=== PATIENT | male | born 1975 | race Caucasian/White ===

== ENCOUNTER 2018-11-20 11:04 | Outpatient (REF) | payer MEDICAID, SELFPAY ==
[2018-11-20 20:57] LABS: HCT 44.1 % (40.0-50.0); HGB 15.3 g/dL (13.5-17.5); Mean Corp. HGB Concentration 34.7 g/dL (32.0-36.0); Mean Corpuscular Hemoglobin 30.2 pg (27.0-33.0); Mean Corpuscular Volume 87.2 fL (80-95); Mean Platelet Volume 12.3 fL (8.0-11.0); Platelet Count 120 x1000/uL (130-400); RBC 5.06 m/cumm (4.50-6.00); RBC Distribution Width 12.8 % (11.8-14.1); White Blood Cell Count 4.45 k/cumm (4.4-10.8)
[2018-11-20 21:14] LABS: TSH 2.16 uIU/mL (0.36-3.74)
== END 2018-11-20 11:24 ==
LOC: NCHCN 11:04
PROVIDERS: PCP Internal Medicine; Visit Provider Internal Medicine
DX: R19.4 Change in bowel habit (principal)
CPT/HCPCS: 85027; 84443

== ENCOUNTER 2021-10-30 16:09 | Outpatient (REF) | payer MEDICAID, SELFPAY ==
[2021-10-30 20:36] LABS: HCT 42.5 % (40.0-50.0); HGB 14.5 g/dL (13.5-17.5); MCH 30.5 pg (27.0-33.0); MCHC 34.1 % (32.0-36.0); MCV 90 fL (80-95); MPV 12.1 fL (8.0-11.0); Platelet Count 107 10^3/uL (130-400); RBC 4.75 10^6/uL (4.36-5.78); RDW 12.2 % (11.8-14.1); RDW-SD 40.4 fL; WBC 4.42 10^3/uL (4.4-10.8)
[2021-10-30 20:49] LABS: Anion Gap 8.4 mmol/L (3-11); BUN 20 mg/dL (7-18); CO2 24.6 mmol/L (21.0-32.0); CREATININE 0.9 mg/dL (0.70-1.30); Calcium 8.6 mg/dL (8.5-10.1); Calculated LDL 92 mg/dL (<100); Chloride 106 mmol/L (98-107); Cholesterol 169 mg/dL (<200); Ferritin 58 ng/mL (26-388); Glucose 92 mg/dL (74-106); HDL Cholesterol 56 mg/dL (40-60); Potassium 4.1 mmol/L (3.5-5.1); Sodium 139 mmol/L (136-145); TSH (W/Ref FT4) 1.06 uIU/mL (0.36-3.74); Triglyceride 108 mg/dL (<150)
== END 2021-10-30 16:10 | disposition home or self-care (01) ==
LOC: NCHCN 16:09
PROVIDERS: PCP Internal Medicine; Visit Provider Nurse Practitioner Family
DX: R53.83 Other fatigue (principal); Z13.220 Encounter for screening for lipoid disorders; Z13.0 Encounter for screening for diseases of the blood and blood-forming organs and certain disorders involving the immune mechanism; D69.6 Thrombocytopenia, unspecified
CPT/HCPCS: 80048; 80061; 85027; 82728; 84443

== ENCOUNTER 2022-01-01 18:16 | Outpatient (REF) | payer MEDICAID, SELFPAY ==
[2022-01-01 21:33] LABS: Abs Immature Grans 0.01 10^3/uL (0.0-0.06); Absolute Eosinophil Count 0.15 10^3/uL (0.0-0.7); Absolute Lymphocyte Count 1.61 10^3/uL (1.2-3.4); Absolute Monocyte Count 0.33 10^3/uL (0.1-0.8); Absolute Neutrophil Count 2.14 10^3/uL (1.2-6.7); Eosinophils % 3.5; HCT 43.4 % (40.0-50.0); HGB 14.5 g/dL (13.5-17.5); Immature Grans % 0.2; MCHC 33.4 % (32.0-36.0); MCV 90 fL (80-95); MPV 12.5 fL (8.0-11.0); Monocytes % 7.8; Neutrophils % 50.5; Platelet Count 100 10^3/uL (130-400); RBC 4.83 10^6/uL (4.36-5.78); RDW 12.2 % (11.8-14.1); RDW-SD 40.5 fL; WBC 4.24 10^3/uL (4.4-10.8)
[2022-01-03 08:28] LABS: Hepatitis B Surface Ag Negative (Negative)
[2022-01-03 08:52] LABS: HBs Antibody, Quant 216.7 mIU/mL (See Note); Hepatitis B Surface Ab Positive (See Note)
[2022-01-03 08:57] LABS: Hepatitis C Ab w Rflx HCV PCR Negative (Negative)
[2022-01-03 09:16] LABS: HIV-1/2 Ag & Ab Screen Negative (Negative)
[2022-01-03 09:45] LABS: Hep B Core Antibody Negative (Negative)
[2022-01-03 09:49] LABS: Hep A Total Ab w Rflx IgM Negative (Negative)
== END 2022-01-01 18:17 | disposition home or self-care (01) ==
LOC: NCHCN 18:16
PROVIDERS: PCP Internal Medicine; Visit Provider Nurse Practitioner Family
DX: D69.6 Thrombocytopenia, unspecified (principal); Z11.59 Encounter for screening for other viral diseases; Z11.4 Encounter for screening for human immunodeficiency virus [HIV]; R53.83 Other fatigue; Z01.84 Encounter for antibody response examination
CPT/HCPCS: 86704; 86706; 86709; 86803; 87340; 87389; 85025

== ENCOUNTER 2022-05-14 02:30 | Outpatient (CLI) | payer MEDICAID, SELFPAY ==
--- NOTE | 2022-05-14 | DI.CT_ITS ---
Exam(s) CT CHEST/ABD/PEL W EXAM: CT CHEST/ABD/PEL W CLINICAL HISTORY: THROMBOCYTOPENIA,D69.6,? SPLEEN SIZE,ADENOPATHY,NEED MEASUREMENTS. TECHNIQUE: Imaging Protocol: Axial computed tomography images with coronal and sagittal reformatted images were created and reviewed CONTRAST MATERIAL: Intravenous: Omnipaque 350 Contrast volume:100 ml Oral: None COMPARISON: No exams were available for comparison FINDINGS: CHEST: LUNGS: There are no pulmonary infiltrates, ominous pulmonary nodules, nor pleural effusions. There a re no significant focal findings in the trachea and mainstem bronchi. There is no bronchiectasis.. MEDIASTINUM: There is no hilar nor mediastinal adenopathy. Visualized thyroid unremarkable.No subcari nal adenopathy. No axillary adenopathy. No supraclavicular adenopathy. There is symmetrical mild-m oderate gynecomastia noted. CARDIAC: Heart size is normal. There is no pericardial effusion.Caliber of the thoracic aorta is wit hin normal limits. OSSEOUS: No significant osseous lesions.. ABDOMEN: There is no ascites. LIVER: There are no focal hepatic lesions nor dilatation of intrahepatic ducts. Mild Paddock steatos is. GALLBLADDER/BILIARY: Multiple calcified gallstones are noted. The gallbladder is not edematous and t here is no pericholecystic fluid. Cystic duct and CBD are not dilated. PANCREAS: No evidence of pancreatic mass nor dilatation of the pancreatic duct. SPLEEN: Spleen measurements are as follows: Craniocaudal 11.4 cm. Maximum width 9.8 cm. Maximum AP 16.2 cm. There are no splenic lesions. The splenic and portal veins are patent. ADRENALS: There are no significant adrenal masses. KIDNEYS: Right kidney unremarkable. There is a benign cyst in the posterior cortex of the left kidne y which measures 1.5 x 1.0 cm.. No cysts evident. ABDOMINAL AORTA: Abdominal aorta is not enlarged. LYMPH NODES: There is no retroperitoneal nor paraaortic adenopathy. ABDOMINAL WALL: No evidence of significant anterior abdominal wall nor inguinal hernia. GI: There is no evidence of bowel obstruction. PELVIS: LYMPH NODES: There is no intrapelvic nor inguinal adenopathy. GI: No evidence of appendicitis.No evidence of sigmoid diverticulitis. URINARY BLADDER: No calculi nor masses evident REPRODUCTIVE: Prostate size normal. Seminal vesicles unremarkable. OSSEOUS: No significant osseous lesions. Bailey node invagination noted in the superior endplate of L5. Other more shallow Schmorl's node invagination is are noted at multiple levels. There are no co mpression fractures. No lytic nor blastic osseous lesions evident. IMPRESSION: 1. No significant intrathoracic findings. No pulmonary findings, lymphadenopathy, nor pleural effusi ons. No paraspinal masses. 2. Cholelithiasis. Multiple calcified gallstones are noted. There is no evidence of acute cholecyst itis nor dilatation of the biliary tree. 3. Splenomegaly. Maximum measurement of the spleen is 16.2 cm (AP sprain. Other measurements are as above. RADIATION DOSE DELIVERED: 1,711mGy.cm Total DLP DATA REPOSITORY: All CT scans at this facility are submitted to the National Radiology Data Registry (NRDR) Dose Index Registry (DIR) with the [employer] (ACR). RADIATION OPTIMIZATION: All CT scans at this facility use at least one of these dose optimization te chniques: automated exposure control; mA and/or kV adjustment per patient size (includes targeted exa ms where dose is matched to clinical indication); or iterative reconstruction.
[2022-05-14] MEDS: Normal Saline - Diluent 50 ML VIAL IJ (14:32)
[2022-05-14] MEDS: Omnipaque 350 MG/ML 100 ML BTL IJ (14:32)
== END 2022-05-14 02:50 ==
LOC: DI 02:30
PROVIDERS: PCP Internal Medicine; Visit Provider Internal Medicine Hematology & Oncology
DX: K80.20 Calculus of gallbladder without cholecystitis without obstruction (principal); R16.1 Splenomegaly, not elsewhere classified
CPT/HCPCS: 74177; 71260; J3490

== ENCOUNTER 2023-02-19 03:00 | Outpatient (CLI) | payer MEDICAID, SELFPAY ==
[2023-02-19 14:12] LABS: Abs Immature Grans 0.02 10^3/uL (0.0-0.06); Absolute Basophil Count 0.01 10^3/uL (0.0-0.2); Absolute Lymphocyte Count 1.55 10^3/uL (1.2-3.4); Absolute Monocyte Count 0.41 10^3/uL (0.1-0.8); Basophils % 0.2; Eosinophils % 3.6; HCT 42.4 % (40.0-50.0); HGB 14.8 g/dL (13.5-17.5); Immature Grans % 0.4; Lymphocytes % 27.7; MCHC 34.9 % (32.0-36.0); MCV 86 fL (80-95); MPV 10.9 fL (8.0-11.0); Monocytes % 7.3; Neutrophils % 60.8; Platelet Count 121 10^3/uL (130-400); RBC 4.93 10^6/uL (4.36-5.78); RDW 12.5 % (11.8-14.1); RDW-SD 39.6 fL; WBC 5.59 10^3/uL (4.4-10.8)
[2023-02-19 14:32] LABS: ALT 39 U/L (16-63); AST 22 U/L (15-37); Alkaline Phosphatase 52 U/L (46-116); Anion Gap 8.8 mmol/L (3-11); BUN 13 mg/dL (7-18); Bilirubin, Total 0.5 mg/dL (0.2-1.0); CO2 28.2 mmol/L (21.0-32.0); CREATININE 0.9 mg/dL (0.70-1.30); Calcium 9.1 mg/dL (8.5-10.1); Chloride 107 mmol/L (98-107); Glucose 85 mg/dL (74-106); Potassium 4.1 mmol/L (3.5-5.1); Sodium 144 mmol/L (136-145)
== END 2023-02-19 03:01 | disposition home or self-care (01) ==
PROVIDERS: PCP Internal Medicine; Visit Provider Internal Medicine Hematology & Oncology
DX: D69.6 Thrombocytopenia, unspecified (principal)
CPT/HCPCS: 36415; 80053; 85025

== ENCOUNTER 2023-10-22 11:52 | Outpatient (REF) | payer MEDICAID, SELFPAY ==
--- OUTSIDE RECORDS SUMMARY | 2023-10-22 11:54 | XMS_ITS | Encounter Summary ---
Author Organization [facility] Address [facility] [place] [address] Care Team Providers Care Patent Lawyer Name Role Phone Concetta Gottlieb MD Primary Care Provider [phone] Encounter Details Date Type Department Care Team (Late st Contact Info) Description 07/03/2022 11:00 AM EDT Office Visit Hematology/Oncology at [address] [phone] Rita Leavitt MD [facility] [address] HEMATOLOGY/[place] [address] Thrombocytopenia Social History Tobacco Use Types Packs/Day Years Used Date Smoking Tobacco: Never Smokeless Tobacco: Never Alcohol Use Standard Drinks/Week Comments Yes 0 (1 standard drink = 0.6 oz pur e alcohol) occasional DH IPV Inpatient Questions Answer Date Recorded Does Anyone Try to Keep You From Having Contact with Others or Doing Things Outside Your Home? no 06/25/2022 Feels Threatened by Someone no 06/06 Feels Unsafe at Home or Work/School no 06/25/2022 Physical Signs of Abuse Present no 06/25/2022 Sex and Gender Information Value Date Recorded Sex Assigned at Not on file Gender Identity Not on file Sexual Orientation Not on file documented as of this encounter Last Filed Vital Signs Vital Sign Reading Time Taken Comments Blood Pressure 140/76 07/03/2022 10:57 AM EDT Pulse 56 07/03/2022 10:57 AM EDT Temperature 36.1 ??C (96.9 ??F) 07/03/2022 10:57 AM E DT Respiratory Rate 18 07/03/2022 10:57 AM EDT Oxygen Saturation 100% 07/03/2022 10:57 AM EDT Inhaled Oxygen Concentration - - Weight 118.8 kg (262 lb) 07/03/2022 10:57 AM EDT Height 193 cm (6' 3.98) 07/03/2022 10:57 AM EDT Body Mass Index 31.91 07/03/2022 10:57 AM EDT documented in this encounter Progress Notes * Rita Leavitt MD - 07/03/2022 11:00 AM EDT [facility]emat[facility] [place] [address] HEMATOLOGY PATIENT EVALUATION HISTORY OF PRESENT ILLNESS: Patient prefers to be called: Grabiel Support person(s) : - Netta Arias is a 47 y.o. year old male being seen for evaluation of thrombocytopenia. he is referred in consultaion from Awa Gonzalez. Mr. Arias is a 47 years old without significant past medical history consistent for overweight, who follows-up with his primary care physician as part of his health maintenance found incidentally to have thrombocytopenia. His CBC from 10/30/2021 showed platelet count at 107K, with normal WBC at 4.42,RBC 4.74 and Hgb 14.5. In a repeated CBC, his platelet count was consistent low at 100K (01/01/2022)with other cell lines within the ranges. His MPV was low at 12.5. Otherwise, chemistry, TSH and hepatitis C were normal (01/01/2022). He found out from his previous records that his thrombocytopenia was noted since 11/26/2018 with platelet count at 120K. There are not other previous records to verifyhis cell counts. Interim History: Grabiel returns today to discuss his recent BMBX. He has been feeling well. He is anxious over the diagnosis. He came in person because he appreciates the [id number] contact which I appreciate as well. Overall he has been feeling well. No B symptoms. No bleeding or bruising. No new health events. PMHX: Chronic rhinitis Overweight PSHX: [place] teeth when he was a teenager without bleeding complications ROS Energy level: reports fatique over the last few years Pain: No Appetite:good Fevers/chills/sweats:No Bruising/bleeding/melena: denies Recent infections:No Headaches:pt has self diagnosed with ocular migraines Vision:neg Hearing:neg Sinus: neg Seasonal Allergies: neg Mouth sores:neg Dentition: Good Swallowing: neg GERD : neg Nausea/vomiting: neg diarrhea/constipation:No SOB/CARDENAS/pulmonary sx: no chest pain:No sx: negative Change in adenopathy or other masses:No Unexpected weight loss or gain:No Skin rashes or petechiae:No Musculoskeletal complaints:No Extremities: Negative upper and lower bilaterally Neurologic symptoms:No Mental Status changes: neg Mood: Normal Sleep: A bit difficulty sleeping which improved after sleep hygiene and melatonin MEDS: Melatonin as needed. Vitamin D during winter time. Allergies: NDKA. FAMILY HISTORY: There are not family history of blood disorders. Family history of coronary artery disease. SOCIAL HISTORY Personal: . He has a child who is 15 years old. 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 ETOH: She drinks about 2 beers in a week. Smoking: Denies. Marijuana or illicit drug use: PHYSICAL EXAM No data found. GENERAL: Marc Arias appears well and is in no acute distress. ENT: Oral pharynx clear. EYES: ANN NECK: Supple without adenopathy. AXILLARY: no adenopathy INGUINAL LN: no adenopathy OTHER LYMPH: no adenopathy CARDIAC: Regular rate and rhythm without S3,S4 or murmurs. LUNGS: Clear to auscultation./percussion ABDOMEN: Soft and non-tender without hepatosplenomegaly or masses. Unable to appreciate any splenomegaly EXTREMITIES: No cyanosis, clubbing, edema or calf tenderness. SKIN: No bruises or petechiae. NEUROLOGICAL: Alert and oriented to person, place and time. MUSCULOSKELETAL: No spinal or chest wall tenderness. LABORATORY STUDIES No results found for this or any previous visit (from the past 24 hour(s)). Latest Reference Range & Units 03/28/22 11:36 06/25/22 10:05 06/25/22 10:45 WBC 4.0 - 9.5 x10(3)/mcL 5.2 4.1 RBC 4.58 - 5.54 x10(6)/mcL 5.04 5.18 Hemoglobin 13.7 - 16.5 g/dL 15.0 15.4 Hematocrit 40.5 - 48.5 % 43.8 44.8 MCV 82.9 - 93.1 fL 86.9 86.5 MCH 27.5 - 32.1 pg 29.8 29.7 MCHC 32.0 - 35.7 g/dL 34.2 34.4 RDWSD 36.0 - 45.0 fL 40.0 39.2 RDWCV 11.4 - 13.8 % 12.5 12.3 Platelets 145 - 357 x10(3)/mcL 112 (L) 112 (L) 141 (L) MPV 7.6 - 12.9 fL 11.0 10.9 Plat Immature % 0.0 - 7.4 % 5.3 nRBC % Auto % 0.0 0.0 nRBC Abs Auto 0.000 - 0.000 x10(3)/mcL 0.000 0.000 Neutr Abs (ANC) 1.70 - 6.10 x10(3)/mcL 2.95 2.14 Neutrophils % % 56.3 51.9 Immature Gran % % 0.20 0.00 Lymphocytes % % 30.0 38.0 Monocytes % % 8.0 6.3 Eosinophils % % 5.3 3.6 Basophils % % 0.2 0.2 May Gran Abs 0.00 - 0.04 x10(3)/mcL 0.01 0.00 Lymphocytes Abs 0.9 - 3.2 x10(3)/mcL 1.6 1.6 Monocyte Abs 0.3 - 0.9 x10(3)/mcL 0.4 0.3 Eosinophils Abs 0.0 - 0.4 x10(3)/mcL 0.3 0.2 Basophils Abs 0.0 - 0.1 x10(3)/mcL 0.0 0.0 Plat Estimate Decreased RBC Morphology Normal Periph Smear Rev See Comment Iron Stain BM See Comment Immunophenotyping Flow See Comment Sodium 135 - 145 mmol/L 140 Potassium 3.5 - 5.0 mmol/L 4.3 Chloride 98 - 107 mmol/L 106 CO2 22 - 31 mmol/L 24 Anion Gap 5 - 15 mmol/L 10 BUN 10 - 20 mg/dL 14 Creatinine 0.80 - 1.50 mg/dL 0.72 (L) Estimated GFR >=60 mL/min/1.73 m?? 113 Calcium 8.5 - 10.5 mg/dL 9.2 Glucose Lvl 65 - 199 mg/dL 89 Total Protein 6.1 - 8.0 g/dL 6.9 Albumin 3.2 - 5.2 g/dL 4.4 Total Bilirubin 0.2 - 1.3 mg/dL 0.5 Alk Phos 40 - 130 unit/L 50 AST 0 - 39 unit/L 22 ALT 0 - 55 unit/L 27 Antinuclear Ab Negative Negative dsDNA Ab <=15.0 IU/mL <=15.0 IU/mL 2.0 2.0 MYELOID SEQ PANEL Rpt PATHOLOGY: 06/25/22 BONE MARROW (BLOOD FILM, ASPIRATE, TOUCH PREP, CORE & CLOT SECTIONS): - Normocellular marrow with maturing trilineage hematopoiesis and no increase in ??blasts (<5% of cellularity) or morphologic/immunophenotypic evidence of lymphoma ??(see Discussion). DISCUSSION The patient's history of splenomegaly and thrombocytopenia is noted. Flow cytometry ??studies showed no monotypic B-cell population, aberrant T-cell population or ??increase in blasts, supporting the above diagnosis. Cytogenetic and NGS molecular ??studies are ongoing. Final integrated report to follow. RADIOLOGY STUDIES REVIEWED: 05/14/22 CT [facility] Impression: 1. No significant intrathoracic findings. No pulmonary findings, lymphadenopathy, nor pleural effusions. No paraspinal masses. 2. Cholelithiasis. Multiple calcified gallstones are noted. There is no evidence of acute cholecystitis nor dilation of the biliary tree 3. Splenomegaly. Maximum measurement of the spleen is 16.2 cm. Splenic measurements are as follows: Craniocaudal 11.4 cm, maximum width 9.8 cm, maximum AP 16.2 cm. There are no splenic lesions. The splenic and portal veins are patent ASSESSMENT/PLAN: Mr. Arias is a 47 years old without significant past medical history consistent for overweight, who follows-up with his primary care physician as part of his health maintenance found incidentally to have: 1. Mild thrombocytopenia Work-up before coming to the switchboard mechanic office: 11/26/2018: CBC platelet count at 120K 10/30/2021: CBC platelet count at 107K, with normal WBC at 4.42, RBC 4.74 and Hgb 14.5. MPV low at 12.1 01/01/2022: CBC platelet count at 100K , other cell lines within the ranges. MPV low at 12.5. TSH within normal limits. Hepatitis C, B and HIV were normal. JENNY and DS DNA normal He has no significant past medical history. He was referred from his primary care physician becauseof thrombocytopenia. Myeloid series and red cells are normal. There is no concern for an underlyingprimary marrow based hematologic condition. The patient has no bleeding or bruising. The only CBC we have is from 2019 at which point his platelet count was 120,000. In October 2021 it was 107,000, and in December it was 100,000. Recent CT at [facility] confirm no adenopathy however there was splenomegaly at 16 cm. Given his height of 6 feet 5 inches it is unclear whether this truly is significant splenomegaly. However, given the splenomegaly and persistent thrombocytopenia, I would recommend a bone marrow biopsy. Splenic marginal zone lymphoma or hairy cell leukemia are possible. MDS is less likely Thrombocytopenia is chronic and not progressive so would not w/u further at this time. Would refer back if plt drop below 80k in the future. Mr Arias recently had a bone marrow biopsy for work-up of his splenomegaly and mild thrombocytopenia. I was pleased to tell him this was perfectly normal. There does not appear to be an underlying hematologic disorder to explain his splenomegaly. We have some molecular studies still pending, but given the normal morphology and flow cytometry of the bone marrow, these are less likely to be abnormalor provided diagnosis. I did an abbreviated autoimmune work-up as well and that was negative. Unfortunately I do not have a explanation for the splenomegaly, but I am pleased to tell him that his bone marrow biopsy was normal and no further HEME follow-up is necessary. His cytogenetics and next generation sequencing is still pending, so I will set up a telephone appointment in 2 weeks to review those results. If those are all normal, then no further follow-up will be necessary. Plan: ?? Telephone appointment in 2 weeks to review cytogenetics and next generation sequencing panel. Ifthose are normal, then no hematology f/u necessary. ?? Return to Heme clinic if plt drop to <80k ?? Refer back to PCP for w/u of splenomegaly. This may be normal for his height. I have not checkedRF or more detailed autoimmune w/u which PCP could consider but given his lack of sx; I am not surethat this is necessary. ?? Would check CBC 1-2 times per year. We reviewed our impression and recommendations with Marc Arias and answered all the questions tosatisfaction. Patient understands the plan, and knows that patient can contact us at any time should any new symptoms, concerns or questions arise. documented in this encounter Plan of Treatment Not on file documented as of this encounter Visit Diagnoses Diagnosis Thrombocytopenia Thrombocytopenia, unspecified documented in this encounter Care Teams Patent Lawyer Relationship Specialty Start Date End Date Concetta Gottlieb MD [address] [place] [address] PCP - General General Internal Medicine 02/01/22 documented as of this encounter
--- OUTSIDE RECORDS SUMMARY | 2023-10-22 11:54 | XMS_ITS | Encounter Summary ---
Author Organization [facility] Address [address] [place] [address] Care Team Providers Care Roof Foreman Name Role Phone Unavailable Primary Care Provider Unavailabl e Encounter Details Date Type Department Care Team (Late st Contact Info) Description 01/02/2022 Lab Requisition [facility] Pathology & Laboratory Medicine - [facility] [address] [place] [address] Outr Resulting Lab, Provider Social History Tobacco Use Types Packs/Day Years Used Date Smoking Tobacco: Never Assessed Sex and Gender Information Value Date Recorded Sex Assigned at Not on file Gender Identity Not on file Sexual Orientation Not on file documented as of this encounter Plan of Treatment Not on file documented as of this encounter Procedures Procedure Name Priority Date/Time Associated Diagnosis Comments HEPATITIS C AB W REFLEX TO HCV RNA BY PCR Routine 01/01/2022 11:50 EDT HEPATITIS A TOTAL ANTIBODY W REFLEX Routine 01/01/2022 11:50 EDT HEPATITIS B CORE ANTIBODY (TOTAL) Routine 01/01/2022 11:50 EDT HEPATITIS B SURFACE ANTIBODY Routine 01/01/2022 11:50 EDT HEPATITIS B SURFACE ANTIGEN Routine 01/01/2022 11:50 EDT documented in this encounter Results * HEPATITIS B SURFACE ANTIBODY (01/01/2022 11:50 EDT) Hep B Surface Ab, Quantitative 216.7 See Note mIU/mL 01/03/2022 8:47 EDT [facility] Comment: Reference Range for Hep B Surface Ab, Quant: Positive: >= 10.0 mIU/mL Negative: ??< 10.0 mIU/mL Patient is presumed to be immune to infection with Hepatitis B Virus. Hep B Surface Ab, Qualitative Positive See Note 01/03/2022 8:47 EDT [facility] Comment: Reference Range for Hep B Surface Ab, Qual: Unvaccinated: ??Negative Vaccinated: ??Positive Blood VENOUS BLOOD / Unknown 01/01/2022 11:50 EDT 01/02/2022 16:51 EDT Provider Outr Resulting Lab CHEMISTRY & BLOOD GAS ORDERABLES Performing Organization Address City/[facility] Co de Phone Number [facility] [address] [place] [address] * HEPATITIS B CORE ANTIBODY (TOTAL) (01/01/2022 11:50 EDT) Hepatitis B Core Ab, Total Negative Negative 01/03/2022 9:40 EDT [facility] Blood VENOUS BLOOD / Unknown 01/01/2022 11:50 EDT 01/02/2022 16:51 EDT Provider Outr Resulting Lab CHEMISTRY & BLOOD GAS ORDERABLES Performing Organization Address [facility] Co de Phone Number [facility] [address] [place] [id number] * HEPATITIS B SURFACE ANTIGEN (01/01/2022 11:50 EDT) Hep B Surface Ag Negative Negative 01/03/2022 8:23 EDT [facility] Blood VENOUS BLOOD / Unknown 01/01/2022 11:50 EDT 01/02/2022 16:51 EDT Provider Outr Resulting Lab CHEMISTRY & BLOOD GAS ORDERABLES Performing Organization Address [facility] Co de Phone Number [facility] [address] [place] [id number] * HEPATITIS C AB W REFLEX TO HCV RNA BY PCR (01/01/2022 11:50 EDT) Hep C Antibody Negative Negative 01/03/2022 8:52 EDT [facility] Blood VENOUS BLOOD / Unknown 01/01/2022 11:50 EDT 01/02/2022 16:51 EDT Provider Outr Resulting Lab CHEMISTRY & BLOOD GAS ORDERABLES Performing Organization Address [facility] Co de Phone Number [facility] [address] [place] [address] * HEPATITIS A TOTAL ANTIBODY W REFLEX (01/01/2022 11:50 EDT) Hepatitis A Antibody, Total Negative Negative 01/03/2022 9:44 EDT [facility] Blood VENOUS BLOOD / Unknown 01/01/2022 11:50 EDT 01/02/2022 16:51 EDT Narrative [facility] - 01/03/2022 9:44 EDT The result of this assay can be falsely elevated (Positive) due to the consumption of Biotin. Provider Outr Resulting Lab CHEMISTRY & BLOOD GAS ORDERABLES Performing Organization Address City/[facility]/ZIP Co de Phone Number [facility] [address] [place] [address] documented in this encounter Visit Diagnoses Not on filedocumented in this encounter
--- OUTSIDE RECORDS SUMMARY | 2023-10-22 11:54 | XMS_ITS | Encounter Summary ---
Author Organization [facility] Address [address] [place] [id number] Care Team Providers Care Pie Maker Name Role Phone Unavailable Primary Care Provider Unavailabl e Encounter Details Date Type Department Care Team (Late st Contact Info) Description 01/02/2022 Lab Requisition [facility] Pathology & Laboratory [facility] - [facility] [address], [place] [id number] Outr Resulting Lab, Provider Social History Tobacco [...] Procedure Name Priority Date/Time Associated Diagnosis Comments HIV 1/2 ANTIGEN AND ANTIBODY, 4TH GENERATION Routine 01/01/2022 11:50 EDT documented in this encounter Results * HIV 1/2 ANTIGEN AND ANTIBODY, 4TH GENERATION (01/01/2022 11:50 EDT) HIV 1 and 2 Antibody/p24 Antigen, 4th Generation Negative Negative 01/03/2022 9:12 EDT [facility] Comment:If acute HIV-1 infec tion is suspected in a high risk patient, submit plasma specimen for HIV-1 RNA quantitation test. Blood VENOUS BLOOD / Unknown 01/01/2022 11:50 EDT 01/02/2022 16:51 EDT Narrative [facility] - 01/03/2022 9:12 EDT Fourth Generation assay performed on the Siemens Centaur XPT. Provider Outr Resulting Lab IMMUNOLOGY A ND SEROLOGY ORDERABLES [facility] [address] [place] [id number] documented in this encounter Visit Diagnoses Not on filedocumented in this encounter
--- OUTSIDE RECORDS SUMMARY | 2023-10-22 11:54 | XMS_ITS | Encounter Summary ---
Author Organization [facility] Address [facility] [place] [address] Care Team Providers Care Monitoring Engineer Name Role Phone Concetta Gottlieb MD Primary Care Provider [phone] Reason for Visit * Reason Comments Advice Only * Consultation (Routine) - Closed Specialty Diagnoses / Procedures Referred By Contac t Referred To Contact Hematology and Oncology Diagnoses Thrombocytopenia, unspecified THROMBOCYTOPENIA Procedures CONSULTATION Jacey Hernandez, [address] [place] [address] [facility] [address] [place] [address] Referral ID Status Reason Start Date Expiration Date Visits Re quested Visits Authorized [id number] Closed 02/01/2022 02/01/2023 1 1 Encounter Details Date Type Department Care Team (Late st Contact Info) Description 03/28/2022 10:00 AM EST Office Visit Hematology [place] [phone] Rita Leavitt MD [facility] DR HEMATOLOGY/[place] [address] Rita Terry APRN [facility] HEMATOLOGY/[place] [address] Zenaida Hoover MD [facility] DR HEMATOLOGY/[place] [address] Thrombocytopenia Social History Tobacco Use Types Packs/Day Years Used Date Smoking Tobacco: Never Smokeless Tobacco: Never Tobacco Cessation:Counseling Given: Not Answered Sex and Gender Information Value Date Recorded Sex Assigned at Not on file Gender Identity Not on file Sexual Orientation Not on file documented as of this encounter Last Filed Vital Signs Vital Sign Reading Time Taken Comments Blood Pressure 139/77 03/28/2022 10:01 AM EST Pulse 55 03/28/2022 10:01 AM EST Temperature 36.3 ??C (97.3 ??F) 03/28/2022 1 0:01 AM EST Respiratory Rate 22 03/28/2022 10:0 1 AM EST Oxygen Saturation 99% 03/28/2022 10: 01 AM EST Inhaled Oxygen Concentration - - Weight 120.2 kg (264 lb 15.9 oz) 2021 10:01 AM EST Height 192.9 cm (6' 3.95) 03/28/2022 1 0:01 AM EST Body Mass Index 32.3 03/28/2022 10:01 AM EST documented in this encounter Progress Notes * Zenaida Hoover MD - 03/28/2022 10:00 AM EST Hematology Clinic [place] [address] NEW PATIENT EVALUATION HISTORY OF PRESENT ILLNESS: Patient prefers to be called: Grabiel Support person(s) : - Netta It was my pleasure to meet Marc Arias today. Marc Arias is a 47 y.o. year old male being seenfor evaluation of thrombocytopenia. he is referred in [...] other previous records to verifyhis cell counts. Grabiel initially saw his PCP due to fatigue and sleep problems which improved after lifestyle modifications such as sleep hygiene, bedtime routine and melatonin use. He has chronic rhinitis treated with nasal saline spray. Today, Grabiel states that he feels fine. He denies fatigue, fever, chills, nightsweats, changes in weight. He denies shortness of breath, chest pain, palpitation, abdominal pain, diarrhea, constipation. He has not noticed any lump or bump in his body. He denies spontaneous bleeding from his gums; he notices some gum bleeding after not flossing for 2 weeks otherwise okay. When he cuts himself accidentally while working, he has not had any trouble with stopping the bleed. PMHX: Chronic rhinitis Overweight PSHX: [place] teeth when he was a teenager without bleeding complications ROS Energy level:stable Pain: No Appetite:good Fevers/chills/sweats:No Bruising/bleeding/melena:No Recent infections:No Headaches:neg Vision:neg Hearing:neg Sinus: neg Seasonal Allergies: neg [...] Marijuana or illicit drug use: PHYSICAL EXAM Patient Vitals for the past 24 hrs: Temp Pulse Resp BP SpO2 03/28/22 1001 36.3 ??C (97.3 ??F) 55 22 139/77 99 % GENERAL: Marc Arias appears well and is in no acute distress. ENT: Oral pharynx clear. EYES: ANN NECK: Supple without adenopathy. AXILLARY: no adenopathy INGUINAL LN: no adenopathy OTHER LYMPH: no adenopathy CARDIAC: Regular rate and rhythm without S3,S4 or murmurs. LUNGS: Clear to auscultation./percussion ABDOMEN: Soft and non-tender without hepatosplenomegaly or masses. EXTREMITIES: No cyanosis, clubbing, edema or calf tenderness. SKIN: No bruises or petechiae. NEUROLOGICAL: Alert and oriented to person, place and time. MUSCULOSKELETAL: No spinal or chest wall tenderness. LABORATORY STUDIES Reviewed in Media from records sent from his PCP. Commented in the HPI. Recent Results (from the past 24 hour(s)) Platelet count Result Value Ref Range Platelets 112 (L) 145 - 357 x10(3)/mcL Plat Immature % 5.3 0.0 - 7.4 % Peripheral Smear Review Result Value Ref Range Periph Smear Rev See Comment Comprehensive metabolic panel (non-fasting) Result Value Ref Range Glucose Lvl 89 65 - 199 mg/dL BUN 14 10 - 20 mg/dL Creatinine 0.72 (L) 0.80 - 1.50 mg/dL Sodium 140 135 - 145 mmol/L Potassium 4.3 3.5 - 5.0 mmol/L Chloride 106 98 - 107 mmol/L CO2 24 22 - 31 mmol/L Anion Gap 10 5 - 15 mmol/L Calcium 9.2 8.5 - 10.5 mg/dL Total Protein 6.9 6.1 - 8.0 g/dL Albumin 4.4 3.2 - 5.2 g/dL AST 22 0 - 39 unit/L ALT 27 0 - 55 unit/L Alk Phos 50 40 - 130 unit/L Total Bilirubin 0.5 0.2 - 1.3 mg/dL Estimated GFR 113 >=60 mL/min/1.73 m?? Hemogram Result Value Ref Range WBC 5.2 4.0 - 9.5 x10(3)/mcL RBC 5.04 4.58 - 5.54 x10(6)/mcL Hemoglobin 15.0 13.7 - 16.5 g/dL Hematocrit 43.8 40.5 - 48.5 % MCV 86.9 82.9 - 93.1 fL MCH 29.8 27.5 - 32.1 pg MCHC 34.2 32.0 - 35.7 g/dL Platelets 112 (L) 145 - 357 x10(3)/mcL RDWSD 40.0 36.0 - 45.0 fL RDWCV 12.5 11.4 - 13.8 % MPV 11.0 7.6 - 12.9 fL nRBC % Auto 0.0 % nRBC Abs Auto 0.000 0.000 - 0.000 x10(3)/mcL Differential, Automated Result Value Ref Range Neutrophils % 56.3 % Neutr Abs (ANC) 2.95 1.70 - 6.10 x10(3)/mcL Lymphocytes % 30.0 % Lymphocytes Abs 1.6 0.9 - 3.2 x10(3)/mcL Monocytes % 8.0 % Monocyte Abs 0.4 0.3 - 0.9 x10(3)/mcL Eosinophils % 5.3 % Eosinophils Abs 0.3 0.0 - 0.4 x10(3)/mcL Basophils % 0.2 % Basophils Abs 0.0 0.0 - 0.1 x10(3)/mcL Immature Gran % 0.20 % May Gran Abs 0.01 0.00 - 0.04 x10(3)/mcL Scan, Peripheral Blood Result Value Ref Range Plat Estimate Decreased RBC Morphology Normal RADIOLOGY STUDIES REVIEWED: None. ASSESSMENT/PLAN: Mr. Arias is a 47 years old without significant past medical history consistent for overweight, who follows-up with his primary care physician as part of his health maintenance found incidentally to have: 1. Mild thrombocytopenia Work-up before coming to the face worker office: 11/26/2018: CBC platelet count at 120K 10/30/2021: CBC platelet count at 107K, with normal WBC at 4.42, RBC 4.74 and Hgb 14.5. MPV low at 12.1 01/01/2022: CBC platelet count at 100K , other cell lines within the ranges. MPV low at 12.5. TSH within normal limits. Hepatitis C, B and HIV were normal. In brief, Mr. Arias is presenting with a mild thrombocytopenia recorded since 2019 in a routine CBC found to be at 120K. It is unclear if this count was lower before this CBC was drawn. His platelet count has been stable over the past 3 years above 100K. He does not seems to have a tendency to bleedand his physical exam is unremarkable; there was not lymph node enlargement nor splenomegaly noted.He is otherwise asymptomatic. I explained to Mr. Arias the differential diagnosis of thrombocytopenia. Secondary causes including:i) infections: less likely since he does not have history of recent infection and Hep B/C/HIV are negative; ii) medications: he is only on melatonin and vitamin which do not affect cell counts, thereare not history of heparin exposure; iii) toxins: such as alcohol, yet he does not have a history of heavy alcohol; iv) coagulopathy: there are not other labs findings concerning for this such as DIC; v) liver disease: his LFTs per previous records seems to be okay and he does not have history of cirrhosis either; vi) hypersplenism: normal spleen size in physical exam; vi) autoimmune process: he d oes not have any symptom that indicate an underlying rheumatological disease. Considering that his platelet count is persistent mildly low overtime, we suspect some degree of consumption or peripheral destruction of platelets as immune thrombocytopenia purpura (ITP). This is less likely to be represent a primary disorder in the bone marrow since other two blood cell lines are intact. Although, there are some bone marrow disorders that impair platelet production (e.g., nutrient deficiencies, MDS, aplastic anemia), those usually reduce production of RBC and WBC, which is not seen in this patient. Plan: ?? We will obtain laboratory tests today including: CBC, CMP, immature platelet function (if elevated, points more toward peripheral destruction), JENNY and ds DNA (screen for rheumatological disease),and peripheral blood smear. ?? We will order CT scan of the chest, abdomen and pelvis to look for splenomegaly, hepatomegaly orlymphadenopathy in case of the presence of a lymphoproliferative process, although suspicious is low. This will be obtained in local facility at [place], [place]. ?? We will arrange a telephone visit after having lab work-up and imaging to discuss results. ?? Follow-up in 3 months at Hematology office with Dr. Leavitt in [facility]. ?? In the meantime, we favor to continue monitoring his CBC on regular basis. Considering his current platelet count, there are not indications for further treatments or transfusions at this time. We reviewed our impression and recommendations with Marc Arias and answered all the questions tosatisfaction. Patient understands the plan, and knows that patient can contact us at any time should any new symptoms, concerns or questions arise. Zenaida Rios M.D. Hematology/Oncology Fellow [facility] * Rita Leavitt MD - 03/28/2022 10:00 AM EST ++++++++++++++++++++++++++++++++++++++++++++++++++++++++++++++++ Attending Addendum: I personally saw, examined and interviewed the patient. I agree with the history, physical, assessment and plan in the note by Dr Rios of the same date. I have reviewed all pertinent laboratory and radiographic findings. We discussed the patient in detail and formulated the assessment and plan together. Was my pleasure to meet this pleasant 47-year-old male. He has no significant past medical history.He was referred from his primary care physician because of thrombocytopenia. Myeloid series and redcells are normal. There is no concern for an underlying primary marrow based hematologic condition.The patient has no bleeding or bruising. The only CBC we have is from 2019 at which point his platelet count was 220,000. In October 2021 it was 107,000, and in December it was 100,000. Today's labs are pending. PCP appropriately checked HIV and hepatitis B and C which were negative. He takes no [id number] medications or any prescribed medications. He denies any bleeding or bruising. No family history. Max 1 beer per day in summer but never more. mariried to Carol Chadwick and one son. 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 Dr. Hudson had reviewed with the patient both what thrombocytopenia is as well as the differential diagnosis which can include primary thrombocytopenia versus secondary thrombocytopenia as well as thedifferential diagnosis for that. He was given written information. He has no significant alcohol intake and no known liver problems. We suspect this may represent a chronic ITP and will need to be followed over time. But no intervention is necessary at this time. Our plan will be to check a CBC today. We will also check an JENNY as a screen for underlying autoimmune disorders. At like to get a CAT scan of the chest abdomen and pelvis just to assess his spleen size and rule out any adenopathy or lymphoma. We will follow-up with telephone visit after that. I will plan to see him in 3 months in [facility] with CBC prior documented in this encounter Plan of Treatment Not on file documented as of this encounter Results * DNA Antibody (Double-Stranded) (03/28/2022 11:36 AM EST) dsDNA Ab 2.0 <=15.0 IU/mL [facility] Comment: <10 negative 10-15 equivocal >15 positive This dsDNA antibody result was generated using a fluoroenzyme immunoassay on the [employer] 250 analyzer. This quantitative test is designed to detect IgG antibodies directed against double stranded DNA in human serum. The presence of antibodies that recognize dsDNA is a highly specific marker for systemic lupus erythematosus. Please note that as of 01/29/2022 that this testing is performed by the Special [facility] Laboratory at [facility]. This change in testing location is associated with a change is testing method and reference intervals. Please review the results of this test in association with the posted reference intervals. Blood 03/28/2022 11:3 6 AM EST 03/29/2022 6:56 AM EST Narrative Resulting Agency Comment Spec In Lab Rita Leavitt MD CHEMISTRY ORDERA BLES [facility] [place] [address] * JENNY Antibody Screen (03/28/2022 11:36 AM EST) Antinuclear Ab Negative Negative [facility] Comment: This antinuclear antibody (JENNY) screen is a qualitative test performed using a fluoroenzyme immunoassay on the [employer] 250 analyzer. This screen is designed to detect antibodies to U1RNP, SS-A/Ro, SS-B/La, centromere B, Scl-70, Ruma-1, and Sm(Guerra) proteins in serum samples. Antibodies to other nuclear antibodies will not be detected with this assay. This JENNY screen is also performed in concert with a quantitative for IgG antibodies to dsDNA. Please note that as of 01/29/2022 that this testing is performed by the Special [facility] Laboratory at [facility]. This change in testing location is associated with a change is testing method and reference intervals. Please review the results of this test in association with the posted reference intervals. dsDNA Ab 2.0 <=15.0 IU/mL [facility] Comment: <10 negative 10-15 equivocal >15 positive This dsDNA antibody result was generated using a fluoroenzyme immunoassay on the [employer] 250 analyzer. This quantitative test is designed to detect IgG antibodies directed against double stranded DNA in human serum. The presence of antibodies that recognize dsDNA is a highly specific marker for systemic lupus erythematosus. Please note that as of 01/29/2022 that this testing is performed by the Special [facility] Laboratory at [facility]. This change in testing location is associated with a change is testing method and reference intervals. Please review the results of this test in association with the posted reference intervals. Blood 03/28/2022 11:3 6 AM EST 03/29/2022 6:56 AM EST Narrative Resulting Agency Comment Spec In Lab Rita Leavitt MD IMMUNOLOGY ORDER JACKELINE [facility] [place] [address] * (ABNORMAL) Platelet count (03/28/2022 11:36 AM EST) Platelets 112(L) 145 - 357 x10(3)/mc L [facility] Plat Immature % 5.3 0.0 - 7.4 % [facility] Comment: Limitation of the Immature Platelet Fraction (IPF)-May be less reliable when the platelet count is less than 74d617/uL due to statistical imprecision. The IPF value provides an assessment of the Bone Marrow production status. ??It is useful in differentiating Thrombocytopenia caused by platelet destruction/consumption versus decreased production. It also helps to determine the imminent release of platelets and can be therefore a helpful parameter in Chemotherapy and Bone marrow transplant patients. ELEVATED IPF value: ?? When the bone marrow is in a state of over production such as when increased destruction and consumption are the underlying issue. ?? When the marrow is recovering post chemotherapy or bone marrow transplant. LOW to NORMAL IPF value: ?? When the bone marrow in not responding and is in a decreased state of production. References: [employer] The Clinical Value of the Immature Platelet Fraction (IPF) in Cell Recovery Document Number 10-1143 09/2010 [employer] The Role of the Immature Platelet Fraction (IPF) in the Differential Diagnosis of Thrombocytopenia, Document [id number] V05 Blood 03/28/2022 11:3 6 AM EST 03/28/2022 11:41 AM EST Narrative Resulting Agency Comment Spec In Lab Rita Leavitt MD HEMATOLOGY ORDER JACKELINE Performing Organization Address City/[facility]/ZIP Co de Phone Number [facility] [place] [address] * Peripheral Smear Review (03/28/2022 11:36 AM EST) [facility] See Comment [facility] Comment: When completed by the Pathologist, report [id number] will display under Hematopathology Reports. Blood 03/28/2022 11:3 6 AM EST 03/28/2022 11:41 AM EST Narrative Resulting Agency Comment Spec In Lab Rita Leavitt MD HEMATOLOGY ORDER JACKELINE Performing Organization Address City/[facility]/ZIP Co de Phone Number [facility] [place] [address] * (ABNORMAL) Comprehensive metabolic panel (non-fasting) (03/28/2022 11:36 AM EST) Glucose Lvl 89 65 - 199 mg/dL [facility] Comment:Diabetes: >=200 mg/d L plus symptoms BUN 14 10 - 20 mg/dL [facility] Creatinine 0.72(L) 0.80 - 1.50 mg/dL [facility] Sodium 140 135 - 145 mmol/L [facility] Potassium 4.3 3.5 - 5.0 mmol/L [facility] Comment: Please note: ??Patients with WBC >100,000 may have falsely elevated Potassium levels. ??For accurate Potassium quantification in these patients send serum separator tube (gold top) for subsequent determinations. ??Contact the Clinical Chemistry Laboratory if there are any questions. Chloride 106 98 - 107 mmol/L [facility] CO2 24 22 - 31 mmol/L [facility] Anion Gap 10 5 - 15 mmol/L [facility] Calcium 9.2 8.5 - 10.5 mg/dL [facility] Total Protein 6.9 6.1 - 8.0 g/dL [facility] Albumin 4.4 3.2 - 5.2 g/dL [facility] AST 22 0 - 39 unit/L [facility] ALT 27 0 - 55 unit/L [facility] Alk Phos 50 40 - 130 unit/L [facility] Total Bilirubin 0.5 0.2 - 1.3 mg/dL [facility] Estimated GFR 113 >=60 mL/min/1. 73 m?? [facility] Comment: This patient's estimated GFR was calculated using the 2020 CKD-EPI equation. The estimated GFR can vary from the measured GFR by up to 30% in the absence of rapidly changing kidney function. Assessment of the estimated GFR is not appropriate when creatinine concentrations are rapidly changing. For clinical situations in which a more precise estimate of GFR is necessary, consider alternative methods of GFR estimation such as a 24-hour urine creatinine clearance. Assignment of CKD stage 1-5 for patients with an eGFR near the transition point between stages may be based on clinical assessment of muscle mass and symptoms in addition to eGFR. Blood 03/28/2022 11:3 6 AM EST 03/28/2022 11:41 AM EST Narrative Resulting Agency Comment Spec In Lab Rita Leavitt MD CHEMISTRY ORDERA BLES [facility] [place] [address] documented in this encounter Visit Diagnoses Diagnosis Thrombocytopenia Thrombocytopenia, unspecified documented in this encounter Care Teams Monitoring Engineer Relationship Specialty Start Date End Date Concetta Gottlieb MD [address] [place] [address] PCP - General General Internal Medicine 02/01/22 documented as of this encounter
--- OUTSIDE RECORDS SUMMARY | 2023-10-22 11:54 | XMS_ITS | Encounter Summary ---
Author Organization [facility] Address [facility] [place] [address] Care Team Providers Care Public Relations Representative Name Role Phone Concetta Gottlieb MD Primary Care Provider [phone] Encounter Details Date Type Department Care Team (Late st Contact Info) Description 05/14/2022 Ancillary Procedure [place] [address] Concetta Gottlieb MD [address] [place] [address] Social History Tobacco Use Types Packs/Day Years Used Date Smoking Tobacco: Never Smokeless Tobacco: Never Sex and Gender Information Value Date Recorded Sex Assigned at Not on file Gender Identity Not on file Sexual Orientation Not on file documented as of this encounter Plan of Treatment Not on file documented as of this encounter Procedures Procedure Name Priority Date/Time Associated Diagnosis Comments FILM LIBRARY STORAGE ONLY CT CHEST ABDOMEN PELVIS Routine 05/14/2022 12:00 AM EST documented in this encounter Results * Film Library- Storage Only CT Chest Abdomen Pelvis (05/14/2022 12:00 AM EST) Narrative [facility] - 05/15/2022 7:36 AM EST This exam is auto-finalizing. It's purpose is for storage only. Concetta Gottlieb MD [facility] FILM LIBRARY ORD ERABLES [place], [place] documented in this encounter Visit Diagnoses Not on filedocumented in this encounter Care Teams Public Relations Representative Relationship Specialty Start Date End Date Concetta Gottlieb MD [address] [place] [address] PCP - General General Internal Medicine 02/01/22 documented as of this encounter
--- OUTSIDE RECORDS SUMMARY | 2023-10-22 11:54 | XMS_ITS | Encounter Summary ---
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 [address] [facility] Referral ID Status Reason Start Date Expiration Date Visits Re quested Visits Authorized [id number] 1 1 Encounter Details Date Type Department Care Team (Late st Contact Info) Description 06/25/2022 10:30 AM EDT - 06/25/2022 10:50 AM EDT Surgery [facility] [id number] Rita Leavitt MD [facility] DR HEMATOLOGY/[place] [address] ([facility] MS[facility]G) BONE MARROW BIOPSY AND ASPIRATION; DIAGNOSTIC (WRVU 1.44) Social History Tobacco Use Types Packs/Day Years Used Date Smoking Tobacco: Never Smokeless Tobacco: Never Tobacco Cessation:Counseling Given: Not Answered Alcohol Use Standard Drinks/Week Comments Yes 0 [...] Sign Reading Time Taken Comments Blood Pressure 121/59 06/25/2022 10:46 AM EDT Pulse 49 06/25/2022 10:46 AM EDT Temperature 36.8 ??C (98.2 ??F) 06/25/2022 10:46 AM E DT Respiratory Rate - - Oxygen Saturation 100% 06/25/2022 10:46 AM EDT Inhaled Oxygen Concentration - - Weight 120.2 kg (265 lb) 06/25/2022 9:48 AM EDT Height 193 cm (6' 4) 06/25/2022 9:48 AM EDT Body Mass Index 32.26 06/25/2022 9:48 AM EDT documented in this encounter Discharge Instructions * Discharge Instructions* Mara Doss RN - 06/25/2022 9:46 AM EDT OUTPATIENT SURGERY POST-OPERATIVE INSTRUCTIONS BONE MARROW BIOPSY SITE You have had a bone marrow aspiration and or/biopsy, which is like having an operation with a tiny,deep incision. Do Not do any strenuous work today, like housework, yard work, sports of any kind or lifting more than 5 pounds as it may cause your bone marrow site to bleed. To avoid infection, leave the clear plastic dressing on the site for three days. You may shower, bathe, or swim as you wish, provided the clear dressing remains intact, and all sides of the dressing are firmly adhered to the skin. In the unlikely event that a portion or the entire dressing should come off, you may replace it with a conventional cloth band aid. However, you will no longer be able to get the site wet until three days have passed, as a conventional band aid is not waterproof and the site is no longer a sterile area. It is not unusual for the site to leak a scant amount of blood, so do not be alarmed to see a smallcollection, or ???puddle?? of blood under the dressing. Wound healing will still occur. If you are uncertain if there is an increase in any leaking from your bone marrow site, roll up a towel, lie down on a firm surface, place the towel directly over the puncture site to apply pressure,and rest there for one half hour. Direct, FIRM thumb pressure applied to the site for 10 minutes works well as an alternative method. Leave the dressing on. Most people do not experience much discomfort after this procedure, but if you do, you should ask your physician what to take. AVOID ASPIRIN PRODUCTS as these interfere with clotting. After three days, remove your dressing and leave it off, so the air can get to the site to finish the healing process. NOTIFY YOUR DOCTOR FOR: Redness Heat Fever Swelling Drainage Increased pain Foul odor (which may not be apparent through the dressing) If you are having problems or have any additional concerns or questions: Between 8am and 5pm - Call the Hematology Clinic at . After 5pm or on a weekend: Call the [facility] workcell operator at and ask for the physician hotel front desk clerk covering for your doctor. Instructions following sedation You may have received medication before and/or during your procedure, which affects judgement and reaction time. Use caution with stairs. Do not drive, operate machinery, drink alcoholic beverages, or make any legal decisions for 24 hours. You may eat a regular diet as tolerated. Do not smoke if you are alone. IV site -- slight redness, or tenderness is normal, you can use a warm compress. If tenderness and redness increases or foul drainage occurs, [place] [address] [email or web address] documented in this encounter Medications at Time of Discharge Medication Sig Dispensed Refills Start Date End Date ergocalciferol, vitamin D2, (VITAMIN D ORAL) Take 1 tablet by mouth daily. melatonin 5 mg Tablet Take by mouth nightly as needed. 02/19/2023 documented as of this encounter Progress Notes * Yoana Aldrich RN - 06/25/2022 10:40 AM EDT Date/Procedure: Meds Given Comments 06/25/22 Midazolam 1 mg; Fentanyl 25 mcg Tolerated well documented in this encounter H&P Notes * Kathy Houston APRN - 06/25/2022 10:18 AM EDT Images from the original note were not included. 06/25/22 Pre-Sedation Assessment: Planned procedure: Unilateral Bone Marrow Aspirate with Biopsy Indications: diagnostic Diagnosis: thrombocytopenia Assessment Cardiovascular: Rhythm: Regular Rate: Normal Pulmonary: Breath sounds clear to auscultation ASA: 2. Mild systemic disease. 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 The planned procedure, its benefits and risks, and alternatives were discussed with the patient. The patient consented to the procedure. Discharge to: Home Kathy Houston, MSN, GAS MASK ASSEMBLER Nurse Practitioner Section of Hematology/Oncology [facility] Office phone: documented in this encounter Procedure Notes * Kathy Houston APRN - 06/25/2022 10:45 AM EDT BONE MARROW BIOPSY AND ASPIRATION PROCEDURE NOTE Bone Marrow Biopsy & Aspiration with Conscious Sedation - Unilateral Date/Time of Procedure: 06/25/2022 Proceduralist: Kathy Houston, RN, MS, PLASTIC JOINT MAKER DIAGNOSIS: thrombocytopenia Pre-Procedure: (x) Consent signed and on chart. (x) CBC drawn within 3 days. (x) Medications/Allergies/Problem List reviewed. (x) H & P complete Prior to start of procedure the following is verified in a TIME OUT: (x) Patient identity (x) Planned procedure (x) Safety concerns IV ACCESS: Per sedation RN PAIN INTERVENTION: Per sedation RN Sterile Condition: Chlorohexidine/betadine was used to sterilize the area. Sterile drapes were usedto create a sterile field. Local Anesthesia: 1% Lidocaine 20 cc's. PROCEDURE: A bone marrow biopsy and aspiration was performed on the right posterior iliac crest. Pressure applied to site(s) for at least 20 minutes following the procedure and Tegaderm placed. Estimated Blood Loss: minimal Complications: none POST INTERVENTION CARE & PAIN ASSESSMENT: Per [facility] nurses. Follow-up: Written/Verbal instructions for site care given to patient per [facility] nurses. Follow-up with Physician as instructed. documented in this encounter Plan of Treatment Not on file documented as of this encounter Procedures Procedure Name Priority Date/Time Associated Diagnosis Comments IMMUNOPHENOTYPING FLOW CYTOMETRY Routine 06/25/2022 10:45 AM EDT MYELOID SEQ PANEL Routine 06/25/2022 10: 45 AM EDT CHROMO REPORT ACQUIRED Routine 3 10:45 AM EDT BONE MARROW FINAL REPORT Routine 023 10:45 AM EDT IRON STAIN, BONE MARROW Routine 06/26/19 23 10:45 AM EDT BONE MARROW PANEL ([facility]/APD) Routine 06/25/2022 10:45 AM EDT Diagnostic Bone Marrow Biopsies & Aspirations (59675) Yes 06/25/2022 10:35 AM EDT thrombocytopenia HEMOGRAM Routine 06/25/2022 10:05 AM EDT DIFFERENTIAL, AUTOMATED Routine 06/26/19 10:05 AM EDT HC CBC,PLT & AUTO DIFF Routine 3 10:05 AM EDT ([facility] MS[facility]) BONE MARROW BIOPSY AND ASPIRATION; DIAGNOSTIC Routine 06/25/2022 9:44 AM EDT documented in this encounter Results * chromo report acquired (06/25/2022 10:45 AM EDT) Cytogenetics Acquired Report Final Report ? [id number] Specimen Type: Bone Marrow Specimen Condition: ~3.0mL, adequate Collection Date/Time: 06/25/2022 10:45 Received Date/Time: 06/25/2022 14:20 Indication: ??Thrombocytopen ia ---Results--- Please see the chromosome analysis scanned report in eD-H corresponding to this specimen. ??This report was completed by [facility] and is located in 'Chart Review' under the 'Media' tab. ??The document name is titled External Genetic Study. ---Karyotype--- See comments. ---Preparation-- - Culture Type: Other FISH Method: ??N/A ---Comments--- The specimen was referred to [facility] ([place], [place], Tel: ?? ) for cytogenetic analysis. ---Disclaimer--- Please note that the above is not a patient lab result and does not have an interpretative component. ??It is only provided to indicate the location of the final report in the EMR for this individual, which has the official interpretations. 07.05.22 (Electronic Signature) Verified By: Pablito Kaba [facility] 06/25/2022 10:4 5 AM EDT 06/25/2022 2:20 PM EDT Rita Leavitt MD HEMATOLOGY ORDER JACKELINE [facility] [place] [address] * Bone Marrow Final Report (06/25/2022 10:45 AM EDT) Bone Marrow Final Report [id number] ? [place] [facility] [place] The signing pathologist has (i) examined the relevant preparation(s) for the specimen(s) and (ii) rendered or confirmed the diagnosis(es). . ? Bone Marrow Final DIAGNOSIS BONE MARROW (BLOOD FILM, ASPIRATE, TOUCH PREP, CORE & CLOT SECTIONS): - Normocellular marrow with maturing trilineage hematopoiesis and no increase in blasts (<5% of cellularity) or morphologic/immunopheno typic evidence of lymphoma (see Discussion). Electronically signed by: ?Tremaine Najera DO Verified: ??07/01/2022 8:28 ?? Pathologist Performed at: ??-[facility] Dept. of Pathology, [place] [address] Computer Network And Systems Engineer: Ravi Emerosn MD, FCAP, ??CLIA Certificate: [id number] DISCUSSION The patient's history of splenomegaly and thrombocytopenia is noted. Flow cytometry studies showed no monotypic B-cell population, aberrant T-cell population or increase in blasts, supporting the above diagnosis. Cytogenetic and NGS molecular studies are ongoing. Final integrated report to follow. Case dictated by Reddy Peter ??M.D. (Hematopathology Fellow) As the attending physician, I attest that I examined the histologic slides, and confirm the diagnosis. PERIPHERAL SMEAR 06/25/22 10:05 EDT ?WBC 4.1 x10(3)/mcL (Ref. Range 4.0 - 9.5) ?? RBC 5.18 x10(6)/mcL (Ref. Range 4.58 - 5.54) ?? Hgb 15.4 g/dL (Ref. Range 13.7 - 16.5) ?? Hct 44.8 % (Ref. Range 40.5 - 48.5) ?? MCV 86.5 fL (Ref. Range 82.9 - 93.1) ?? MCH 29.7 pg (Ref. Range 27.5 - 32.1) ?? MCHC 34.4 g/dL (Ref. Range 32.0 - 35.7) ?? RDWSD 39.2 fL (Ref. Range 36.0 - 45.0) ?? RDWCV 12.3 % (Ref. Range 11.4 - 13.8) ?? Platelet 141 x10(3)/mcL (Ref. Range 145 - 357) ?? MPV 10.9 fL (Ref. Range 7.6 - 12.9) ?? Neutro Absolute 2.14 x10(3)/mcL (Ref. Range 1.70 - 6.10) ?Lymph Absolute 1.6 x10(3)/mcL (Ref. Range 0.9 - 3.2) ?? Monocy Absolute 0.3 x10(3)/mcL (Ref. Range 0.3 - 0.9) RBCs are normocytic/normochromic with minimal polychromasia. WBC show adequate morphology. Platelets are borderline thrombocytopenic with few large and giant forms. BONE MARROW ASPIRATE Adequacy: ?Smear/touch preparations adequate, cellular. G:E ratio: ? ~1:1 Erythroid: ? Complete normoblastic maturation. Granulocyte: ?? Complete maturation, no left-shift. Blasts: ?Not increased. Megakaryocyte: Adequate morphology. Lymphocyte: ?Scattered mature forms seen. Plasma cells: ??Not increased, normal morphology. Other: ? Normal eosinophils, basophils, and mast cells. Iron stain: ?Iron stores present, no ring sideroblasts. . DIFFERENTIAL Band/Seg 24%; Lymph 7%; Payette 3%; Eos 7%; Baso 0%; Metamyelocyte 5%; Myelocyte 6%; Promyelocyte 2%; Blast 2%; nRBC's 42%; Plasma cell 2% BONE MARROW BIOPSY and/or CLOT Core Adequacy: Decalcified, adequate, evaluable marrow present. Clot Adequacy: Marrow spicules present, findings similar to core. Cellularity: ?? Normocellular (~50%). Erythroid: ? Precursors numerically normal. Granulocyte: ?? Precursors numerically normal. Megakaryocyte: Normal in number and appearance, no clustering seen. Lymphocytes: ?? No abnormal aggregates identified. Plasma cells: ??Normal numbers. Other: ? Normal eosinophils, basophils, and mast cells. Bone: ?Trabecular bone normal for age. Reticulin: ? Highlights minimal reticulin fibrosis (MF 0-1/3). IMMUNOHISTOCHEMISTRY STUDIES Block: ?A1 Fixative: ?? Formalin ANTIBODY ?RESULT/COMMENT CD3 ? Highlights scattered T-cells. CD20 ?Highlights few scattered B-cells. E-Cadherin ??Highlights adequate erythroid precursors. MPO ? Highlights adequate myeloid precursors. CD34 ?Highlights few scattered mononuclear cells (<5% of cellularity). CD61 ?Highlights adequate scattered megakaryocytes. CD117 ? Highlights few scattered mast cells. The immunoperoxidase stains reported above were developed by the clinical laboratory at [facility]. Antibody specificities have been verified on tissues with known staining performance characteristics. These stains have not been cleared or approved by the U.S. Food and Drug Administration, however such approval is not required for analyte-specific reagents of this type. Appropriate positive and negative controls are included for each case. CLINICAL INFORMATION Specimen: A1= Bone marrow, aspirate and biopsy, right A2= spicule section Clinical Diagnosis: 47M w/hx thrombocytopenia and splenomegaly Indication for Study: Diagnostic SPECIMEN PROCESSING A - Received in two containers: 1 - Labeled/Fixative: Patient demographics and R, formalin. Quantity/Size: Single, 1.5 x 0.2 cm Tissue Description: Red-brown firm needle core biopsy of bone. Submitted in: A1 2 - Labeled/Fixative: Patient demographics and A2, fresh. Quantity/Size: Fragments, 0.5 x 0.2 x 0.2 cm in aggregate Tissue Description: [place] soft tissue fragments. Submitted in: A2 Sections/Processing: Blocks submitted for decalcification: A1. Entirely submitted in 2 cassettes labeled A1-A2. ??shb . ?Flow Cytometry DIAGNOSIS BONE MARROW ASPIRATE, FLOW CYTOMETRY: - No monotypic B-cell population, specific veronica-T-cell marker aberrancies, or significant increase in blasts are detected. (see comment). COMMENT: Flow cytometry may not detect all abnormal lymphoproliferations and is not suitable for the evaluation of non-hematologic processes. Please correlate with the primary bone marrow biopsy report. Case dictated by Reddy Peter ??M.D. (Hematopathology Fellow) As the attending physician, I attest that I examined the flow cytometry worksheet, and confirm the diagnosis. Electronically signed by: ?Reinaldo BARNES Tremaine Sanchez Verified: ??06/26/2022 14:54 ??Pathologist Performed at: ??-[facility] Dept. of Pathology, [place] [address] Computer Network And Systems Engineer: Ravi Emerson MD, FCAP, ??CLIA Certificate: [id number] DISCUSSION The [id number] low-SSC flow scatterplot region represents ~2% of the total events. A subset (<1% of cells) of these is positive for CD34, HLA-DR, CD117, CD13, CD33 and negative for other tested markers, consistent with myeloid blasts. No other abnormal blast populations identified. The lymphocyte -enriched gate represents about 19% of the total events, and this gated population consists mostly of T-cells (86%), B-cells (5%), and NK-cells (9%). The T-cells show a CD4:CD8 ratio of about 1.2:1, and no veronica-T-cell marker aberrancy is identified. The B-cells are polytypic with a kappa:lambda ratio of about 1.7:1. Flow analysis is an ancillary study. A definite diagnosis requires correlation with the morphologic features of this process and if necessary, correlation with other ancillary studies like immunohistochemistry, enzyme cytochemistry and/or cyto/ molecular genetics. This test was developed and its performance characteristics determined by the Clinical Flow Cytometry Laboratory at [facility]. It has not been cleared or approved by the U.S. Food and Drug Administration. ??The FDA has determined that such clearance or approval is not necessary. ??This test is used for clinical purposes. ??It should not be regarded as investigational or for research. This laboratory is certified under the Clinical Laboratory Improvement Act of 1988 (CLIA) as qualified to perform high complexity clinical laboratory testing. SPECIMEN PROCESSING [id number] Cells for immunophenotypic analysis were derived from bone marrow. CD45 vs side scatter gating was utilized to identify lymphoid and CD45 dim analysis regions that comprise approximately 18-19% and 2% of all cells, respectively. The following markers were assessed: CD2, CD3, CD4, CD5, CD7, CD8, CD10, CD13, CD14, CD19, CD34, CD45, CD56, CD117, HLA-DR, kappa light chain, and lambda light chain. CLINICAL INFORMATION 47M w/hx thrombocytopenia and splenomegaly. [facility] AP Specimen 06/25/2022 10:4 5 AM EDT Rita Leavitt MD PATHOLOGY/CYTOLO GY ORDERABLES Performing Organization Address [facility] Co de Phone Number [facility] [place] [address] * Myeloid Seq Panel (06/25/2022 10:45 AM EDT) Bone Marrow 06/25/2022 10:4 5 AM EDT 06/26/2022 7:54 AM EDT Narrative Resulting Agency Comment Spec In Lab Rita Leavitt MD CHEMISTRY ORDERA BLES Performing Organization Address [facility] Co de Phone Number [facility] [place] [address] * Immunophenotyping Flow Cytometry (06/25/2022 10:45 AM EDT) Immunophenotyping Flow See Comment [facility] Comment: When completed by the Pathologist, the Flow Cytometry Report ([id number]) will display under the Pathology Results section within eDH. Bone Marrow 06/25/2022 10:4 5 AM EDT 06/25/2022 11:00 AM EDT Narrative Resulting Agency Comment Spec In Lab Rita Leavitt MD HEMATOLOGY ORDER JACKELINE [facility] [place] [address] * Iron Stain, Bone Marrow (06/25/2022 10:45 AM EDT) Iron Stain BM See Comment [facility] Comment:See Bone Marrow Repo rt [id number] under Hematopathology Reports. Bone Marrow 06/25/2022 10:4 5 AM EDT 06/25/2022 11:00 AM EDT Narrative Resulting Agency Comment Spec In Lab Rita Leavitt MD HEMATOLOGY ORDER JACKELINE Performing Organization Address City/[facility]/ZIP Co de Phone Number [facility] [place] [address] * Differential, Automated (06/25/2022 10:05 AM EDT) Neutrophils % 51.9 % [facility] Neutr Abs (ANC) 2.14 1.70 - 6.10 x10(3)/[facility] Lymphocytes % 38.0 % [facility] Lymphocytes Abs 1.6 0.9 - 3.2 x10(3)/[facility] Monocytes % 6.3 % [facility] Monocyte Abs 0.3 0.3 - 0.9 x10(3)/[facility] Eosinophils % 3.6 % [facility] Eosinophils Abs 0.2 0.0 - 0.4 x10(3)/[facility] Basophils % 0.2 % [facility] Basophils Abs 0.0 0.0 - 0.1 x10(3)/[facility] Immature Gran % 0.00 % [facility] Comment: Immature granulocytes(IG's)percentage and absolute count will include metamyelocytes, myelocytes, and promyelocytes. Blood smears from CBCs yielding IG's will be scanned manually for concordance. If this scan disagrees with the automated IG or if promyelocytes are noted, a manual differential will be performed. May Gran Abs 0.00 0.00 - 0.04 x10(3)/[facility] Blood 06/25/2022 10:0 5 AM EDT 06/25/2022 10:40 AM EDT Narrative Resulting Agency Comment Spec In Lab Rita Leavitt MD HEMATOLOGY ORDER JACKELINE [facility] [place] [address] * (ABNORMAL) Hemogram (06/25/2022 10:05 AM EDT) WBC 4.1 4.0 - 9.5 x10(3)/[facility] RBC 5.18 4.58 - 5.54 x10(6)/[facility] Hemoglobin 15.4 13.7 - 16.5 g/dL [facility] Hematocrit 44.8 40.5 - 48.5 % [facility] MCV 86.5 82.9 - 93.1 fL [facility] MCH 29.7 27.5 - 32.1 pg [facility] MCHC 34.4 32.0 - 35.7 g/dL [facility] Platelets 141(L) 145 - 357 x10(3)/[facility] RDWSD 39.2 36.0 - 45.0 [facility] RDWCV 12.3 11.4 - 13.8 % [facility] MPV 10.9 7.6 - 12.9 [facility] nRBC % Auto 0.0 % [facility] nRBC Abs Auto 0.000 0.000 - 0.000 x10(3)/[facility] Blood 06/25/2022 10:0 5 AM EDT 06/25/2022 10:40 AM EDT Narrative Resulting Agency Comment Spec In Lab Rita Leavitt MD HEMATOLOGY ORDER JACKELINE [facility] [place] [address] documented in this encounter Visit Diagnoses Not on filedocumented in this encounter Administered Medications Inactive Administered Medications - up to 3 most recent administrations Medication Order MAR Action Action Date Dose Rate Site fentaNYL (pf) (50 mcg/mL) multi-dose injection 25-50 mcg 25-50 mcg, Intravenous, EVERY 5 MIN PRN, Starting on Fri06/25/22 at 0945, Until Fri06/25/22 at 1643, Pain, Hold for respiratory rate less than 8 breaths per minute. (maximum dose 200 mcg), Intra-Operative (Intra-Procedure), Routine Given 06/25/2022 10:35 AM EDT 25 mcg flumazeniL (Romazicon) (0.1 mg/mL) injection 0.2 mg 0.2 mg, Intravenous, EVERY 2 MIN PRN, Starting on Fri06/25/22 at 0945, Until Fri06/25/22 at 1643, Benzodiazepine reversal, 0.2 mg intravenous, every 2 minutes PRN for total of 5 doses for respiratory rate less than 8 or SpO2 less than 90% despite supplement O2., Intra-Operative (Intra-Procedure), Routine lidocaine (Xylocaine) 1% (10 mg/mL) injection 3 mg 3 mg (0.3 mL), Subcutaneous, ONCE PRN, 1 dose, Starting on Fri06/25/22 at 0945, Until Fri06/25/22 at 1643, for discomfort with PIV insertion, Day of Surgery (Day of Procedure), Routine midazolam (pf) (Versed) (1 mg/mL) multi-dose injection 0.5-2 mg 0.5-2 mg, Intravenous, EVERY 5 MIN PRN, Starting on Fri06/25/22 at 0945, Until Fri06/25/22 at 1643, Sleep, Anxiety, Hold for delirium/agitation. (Maximum dose 5 mg)., Intra-Operative (Intra-Procedure), Routine Given 06/25/2022 10:36 AM EDT 1 mg naloxone (Narcan) (0.4 mg/mL) injection 0.1 mg 0.1 mg, Intravenous, EVERY 2 MIN PRN, Starting on Fri06/25/22 at 0945, Until Fri06/25/22 at 1643, Opioid Reversal, Opiate induced oversedation or respiratory depression. (maximum dose of 0.8 mg), Intra-Operative (Intra-Procedure), Routine sodium chloride 0.9 % (flush) (BD PosiFlush Normal Saline 0.9) flush 5 mL 5 mL, Intravenous, EVERY 12 HOURS, First dose on Fri06/25/22 at 1015, Until Discontinued, Day of Surgery (Day of Procedure), Routine sodium chloride 0.9 % (flush) (BD PosiFlush Normal Saline 0.9) flush 5-20 mL 5-20 mL, Intravenous, EVERY 1 MIN PRN, Starting on Fri06/25/22 at 0945, Until Fri06/25/22 at 1643, flush, Flush pertains to all indwelling lines. Flush per protocol found in the job aid using the link provided on this medication record., Day of Surgery (Day of Procedure), Routine sodium chloride 0.9% infusion 1,000 mL, at 100 mL/hr, Intravenous, CONTINUOUS, Starting on Fri06/25/22 at 1015, Until Fri06/25/22 at 1643, Day of Surgery (Day of Procedure) documented in this encounter Active and Recently Administered Medications Times are shown in EDT. Scheduled Medication Order 06/23/2022 06/24/2022 06/25/2022 heparin (pf) (porcine) (1,000 unt/mL) injection for bone marrow biopsy as directed, ONCE, On Fri06/25/22 at 1015, 1 dose, Do not administer to patient. To be used to heparinize SYRINGE ONLY for bone marrow sample. , Day of Surgery (Day of Procedure) 1015 (Due) lidocaine (pf) (Xylocaine) (10 mg/mL) 1% injection 10 mg 10 mg, Subcutaneous, ONCE, 1 dose, On Fri06/25/22 at 1015, To be given DURING the procedure, Day of Surgery (Day of Procedure), Routine 1015 (Due) sodium chloride 0.9 % (flush) (BD PosiFlush Normal Saline 0.9) flush 5 mL 5 mL, Intravenous, EVERY 12 HOURS, First dose on e 06/25/22 at 1015, Until Discontinued, Day of Surgery (Day of Procedure), Routine 1015 (Due) Continuous Medication Order 06/23/2022 06/24/2022 06/25/2022 sodium chloride 0.9% infusion 1,000 mL, at 100 mL/hr, Intravenous, CONTINUOUS, Starting on Fri06/25/22 at 1015, Until Fri06/25/22 at 1643, Day of Surgery (Day of Procedure) 1015 (Due) PRN Medication Order 06/23/2022 06/24/2022 06/25/2022 fentaNYL (pf) (50 mcg/mL) multi-dose injection 25-50 mcg 25-50 mcg, Intravenous, EVERY 5 MIN PRN, Starting on Fri06/25/22 at 0945, Until Fri06/25/22 at 1643, Pain, Hold for respiratory rate less than 8 breaths per minute. (maximum dose 200 mcg), Intra-Operative (Intra-Procedure), Routine 1035 (Given - Provid er: Yoana Aldrich RN) flumazeniL (Romazicon) (0.1 mg/mL) injection 0.2 mg 0.2 mg, Intravenous, EVERY 2 MIN PRN, Starting on Fri06/25/22 at 0945, Until Fri06/25/22 at 1643, Benzodiazepine reversal, 0.2 mg intravenous, every 2 minutes PRN for total of 5 doses for respiratory rate less than 8 or SpO2 less than 90% despite supplement O2., Intra-Operative (Intra-Procedure), Routine lidocaine (Xylocaine) 1% (10 mg/mL) injection 3 mg 3 mg (0.3 mL), Subcutaneous, ONCE PRN, 1 dose, Starting on Fri06/25/22 at 0945, Until 06/25/22 at 1643, for discomfort with PIV insertion, Day of Surgery (Day of Procedure), Routine midazolam (pf) (Versed) (1 mg/mL) multi-dose injection 0.5-2 mg 0.5-2 mg, Intravenous, EVERY 5 MIN PRN, Starting on Fri06/25/22 at 0945, Until Fri06/25/22 at 1643, Sleep, Anxiety, Hold for delirium/agitation. (Maximum dose 5 mg)., Intra-Operative (Intra-Procedure), Routine 1036 (Given - Provid er: Yoana Aldrich RN) naloxone (Narcan) (0.4 mg/mL) injection 0.1 mg 0.1 mg, Intravenous, EVERY 2 MIN PRN, Starting on Fri06/25/22 at 0945, Until Fri06/25/22 at 1643, Opioid Reversal, Opiate induced oversedation or respiratory depression. (maximum dose of 0.8 mg), Intra-Operative (Intra-Procedure), Routine sodium chloride 0.9 % (flush) (BD PosiFlush Normal Saline 0.9) flush 5-20 mL 5-20 mL, Intravenous, EVERY 1 MIN PRN, Starting on Fri06/25/22 at 0945, Until Fri06/25/22 at 1643, flush, Flush pertains to all indwelling lines. Flush per protocol found in the job aid using the link provided on this medication record., Day of Surgery (Day of Procedure), Routine documented in this encounter Care Teams Fiberglass Tube Molder Relationship Specialty Start Date End Date Concetta Gottlieb MD [address] [place] [address] PCP - General General Internal Medicine 02/01/22 documented as of this encounter
--- OUTSIDE RECORDS SUMMARY | 2023-10-22 11:54 | XMS_ITS | Encounter Summary ---
Author Organization [facility] Address [facility] [place] [address] Care Team Providers Care Pcmh Specialist Name Role Phone Concetta Gottlieb MD Primary Care Provider [phone] Encounter Details Date Type Department Care Team (Late st Contact Info) Description 02/19/2023 3:00 PM EST Office Visit Hematology/Oncology at [address] [phone] Rita Leavitt MD [facility] DR HEMATOLOGY/[place] [address] Joyce Epstein APRN [facility] DR HEMATOLOGY/[place] [address] Thrombocytopenia Social History Tobacco Use Types Packs/Day [...] Sign Reading Time Taken Comments Blood Pressure 124/72 02/19/2023 2:53 PM EST Pulse 74 02/19/2023 2:53 PM EST Temperature 36.2 ??C (97.2 ??F) 02/19/2023 2:53 PM ES T Respiratory Rate 16 02/19/2023 2:53 PM EST Oxygen Saturation 97% 02/19/2023 2:53 PM EST Inhaled Oxygen Concentration - - Weight 119.7 kg (264 lb) 02/19/2023 2:53 PM EST Height 193 cm (6' 3.98) 02/19/2023 2:53 PM EST Body Mass Index 32.15 02/19/2023 2:53 PM EST documented in this encounter Progress Notes * Rita Leavitt MD - 02/19/2023 3:00 PM EST Hematology Clinic [facility] [place] [address] HEMATOLOGY PATIENT EVALUATION HISTORY OF PRESENT ILLNESS: Patient prefers to be called: Grabiel Support person(s) : - Netta Arias is a 48 y.o. year old male being seen for [...] with platelet count at 120K. There are no other previous records to comparehis cell counts. Interim History: Grabiel returns today for a final CBC before considering discharge from heme clinic. He has been feeling well. He is anxious over the diagnosis. He came in person because he appreciates the rjvs-[id number] which I value as well. Overall he has been feeling well. No B symptoms. No bleeding or bruising. No new health events. Had a great apple season 30-40 varieties!!! 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 ETOH: he drinks about 2 beers in a week. Smoking: Denies. Marijuana or illicit drug use: PHYSICAL EXAM Patient Vitals for the past 24 hrs: Temp Pulse Resp BP SpO2 02/19/23 1453 36.2 ??C (97.2 ??F) 74 16 124/72 97 % GENERAL: Marc Arias appears well and [...] spinal or chest wall tenderness. LABORATORY STUDIES Recent Results (from the past 24 hour(s)) CBC (with Diff) Result Value Ref Range WBC 5.59 Hemoglobin 14.8 Hematocrit 42.4 Platelets 121 Neutr Abs (ANC) 3.4 Comprehensive metabolic panel (non-fasting) Result Value Ref Range Creatinine 0.9 Potassium 4.1 Total Bilirubin 0.5 AST 22 ALT 39 Latest Reference Range & Units 03/28/22 11:36 [...] increase in blasts (<5% of cellularity) or morphologic/immunophenotypic evidence of lymphoma (see Discussion). DISCUSSION The patient's history of splenomegaly and thrombocytopenia is noted. Flow cytometry studies showed no monotypic B-cell population, aberrant T-cell population or increase in blasts, supporting the above diagnosis. Cytogenetic and NGS molecular studies are ongoing. Final integrated report to follow. RADIOLOGY STUDIES REVIEWED: 05/14/22 CT [facility] Impression: 1. No significant intrathoracic findings. No pulmonary findings, lymphadenopathy, nor pleural effusions. No paraspinal masses. 2. Cholelithiasis. Multiple calcified gallstones are noted. There is no evidence of acute cholecystitis nor dilation of the biliary tree 3. Splenomegaly. Maximum measurement of the spleen is 16.2 cm in AP diam and 11.4 cm in C-Caudal . Splenic measurements are as follows: Craniocaudal 11.4 cm, maximum width 9.8 cm, maximum AP 16.2 cm. There are no splenic lesions. The splenic and portal veins are patent ASSESSMENT/PLAN: Mr. Arias is a 48 y.o. without significant past medical history consistent for overweight, who follows-up with his primary care physician as part of his health maintenance found incidentally to have: 1. Mild thrombocytopenia Work-up before coming to the bin filler office: 11/26/2018: CBC platelet count at 120K [...] December it was 100,000. Recent CT at [facility] confirm no adenopathy however there was splenomegaly at 16 cm. Given his height of 6 feet 5 inches it is unclear whether this truly is significant splenomegaly. However, given the splenomegaly and persistent thrombocytopenia, I recommended a BMBx. Mr Arias recently had a bone marrow [...] and no further HEME follow-up is necessary. CG and NGS myeloid sequencing were normal. I had the opportunity to reach out to one of my radiology colleagues, Dr. Irizarry. She forwarded an article from radiology Journal from 2015 stating that spleen size is correlated with sex and body height. I also reviewed the scans myself, and the spleen has a slight elliptic shape, also decreasing the volume. I really do not think that he has significant splenomegaly given his sex, and body habitus. His thrombocytopenia remains stable, but unexplained. Thrombocytopenia is chronic and not progressive so would not w/u further at this time. I think we can safely return him to the care of his primary care physician. PCP can check platelet count annually and refer back if plt drop below 80k in future. Plan: Return to Heme clinic if plt drop to <80k Refer back to PCP for w/u of splenomegaly. This may be normal for his height. I have not checked RFor more detailed autoimmune w/u which PCP could consider but given his lack of sx; I am not sure that this is necessary. Would recommend to check CBC 1-2 times per year. If thrombocytopenia remains stable, this can be discontinued. We reviewed our impression and recommendations with Marc Arias and answered all the questions tosatisfaction. Patient understands the plan, and knows that patient can contact us at any time should any new symptoms, concerns or questions arise. documented in this encounter Plan of Treatment Not on file documented as of this encounter Procedures Procedure Name Priority Date/Time Associated Diagnosis Comments CBC (WITH DIFF) Routine 02/19/2023 COMPREHENSIVE METABOLIC PANEL (NON-FASTING) Routine 02/19/2023 documented in this encounter Results * Comprehensive metabolic panel (non-fasting) (02/19/2023) Creatinine 0.9 Potassium 4.1 Total Bilirubin 0.5 AST 22 ALT 39 Blood 02/19/2023 Historical Provider CHEMISTRY ORDERAB LES * CBC (with Diff) (02/19/2023) WBC 5.59 Hemoglobin 14.8 Hematocrit 42.4 Platelets 121 Neutr Abs (ANC) 3.4 Blood 02/19/2023 Historical Provider HEMATOLOGY ORDERA BLES documented in this encounter Visit Diagnoses Diagnosis Thrombocytopenia Thrombocytopenia, unspecified documented in this encounter Care Teams Pcmh Specialist Relationship Specialty Start Date End Date Concetta Gottlieb MD [address] [address] PCP - General General Internal Medicine 02/01/22 documented as of this encounter
--- OUTSIDE RECORDS SUMMARY | 2023-10-22 11:54 | XMS_ITS | Referral Summary ---
Author Organization [facility] Address [address] [place] [address] Care Team Providers Care Zigzag Topstitcher Name Role Phone Unavailable Primary Care Provider Unavailabl e Social History Tobacco Use Types Packs/Day Years Used Date Smoking Tobacco: Never Assessed Sex and Gender Information Value Date Recorded Sex Assigned at Not on file Gender Identity Not on file Sexual Orientation Not on file Plan of Treatment Not on file Procedures Procedure Name Priority Date/Time Associated Diagnosis Comments HEPATITIS C AB W REFLEX TO HCV RNA BY PCR Routine 01/01/2022 11:50 EDT from Last 3 Months or Most Recently Relevant to Health Maintenance Results * HEPATITIS C AB W REFLEX TO HCV RNA BY PCR (01/01/2022 11:50 EDT) Hep C Antibody Negative Negative 01/03/2022 8:[address] [facility] Blood VENOUS BLOOD / Unknown 01/01/2022 11:50 EDT 01/02/2022 16:51 EDT Provider Outr Resulting Lab CHEMISTRY & BLOOD GAS ORDERABLES [facility] [address] [place] [address] from Last 3 Months or Most Recently Relevant to Health Maintenance
--- OUTSIDE RECORDS SUMMARY | 2023-10-22 11:54 | XMS_ITS | Continuity of Care Document ---
Author Organization [facility] Address [address] [place] [address] Care Team Providers Care Mine Car Dispatcher Name Role Phone FREDERIC BAH Dentist Assessment No assessment recorded. Plan of Treatment Reminders Order Date Submit Date Provider Last Modified By Organization Details Last Modified Time Details Appointments Annual Wellness Exam 40 2023 09:00A M RUBY SCOTT, Not available Not available Not available Lab CBC [address] [facility] (Registration ), [address] [place] [address] , [place], [address], 10/22/2023 10:49:02 CMP, serum or plasma [address] [facility] (Registration ), [address] [place] [address] , [place], [address], 10/22/2023 10:49:02 Referral None recorded. Procedures colonosco py screening (PROC) [address] [facility] [address] [facility], [address] [place] [address] , [address], [place], [address], 10/22/2023 09:54:57 Surgeries None recorded. Imaging None recorded. Medication Orders None recorded. Patient TargetsNo targets recorded. Patient Instructions Encounter Date Encounter Id Patient Instructions Last Modified By Organization Details Last Modified Time 10/22/2023 [id number] Try the neti pot and increase flonase to twice a day [email or web address] Not available 10/22/2023 09:35:20 Reason for Referral None Reported. Problems Name Status Onset Date Resolution Date Notes Provider Name and Address Organization Details Recorded Time Family history of Cardiovascular disease Active 2004 Problem Code: Z82.49; Problem Code Type: ICD-10; MD [address], [facility] [address] , [facility] 4 11:48:01 Adult health examination Active 2017 Problem Code: Z00.00; Problem Code Type: ICD-10; MD [address], [facility] [address] , [facility] 4 11:48:01 Altered bowel function Active 2017 Problem Code: R19.4; Problem Code Type: ICD-10; MD [address], [facility] [address] , [facility] 4 11:48:01 Pain of left knee joint Active 2018 Problem Code: M25.562; Problem Code Type: ICD-10; MD [address], [facility] [address] , [facility] 4 11:48:01 Fatigue Active 2021 Problem Code: R53.83; Problem Code Type: ICD-10; MD [address], [place], [address] , [facility] 4 11:48:01 Screening for malignant neoplasm of colon Active 2021 Problem Code: Z12.11; Problem Code Type: ICD-10; MD [address], [facility] [address] , [facility] 4 11:48:01 Thrombocytopenic disorder Active 2021 Problem Code: D69.6; Problem Code Type: ICD-10; MD [address], [place], [address] , [facility] 4 11:48:01 Steatosis of liver Active 2022 Problem Code: K76.0; Problem Code Type: ICD-10; MD [address], [facility] [address] , [facility] 4 11:48:01 Splenomegaly Active 2022 Problem Code: R16.1; Problem Code Type: ICD-10; MD [address], [facility] [address] , [facility] 4 11:48:01 Dog bite Completed 202209/09/2022 Not Available [facility] 3 03:51:07 Pain of right knee joint Completed 202209/09/2022 Problem Code: M25.561; Problem Code Type: ICD-10; Not Available [facility] 3 03:51:07 Elevated blood-pressure reading without diagnosis of hypertension Completed 201811/20/2018 Problem Code: R03.0; Problem Code Type: ICD-10; Not Available [facility] 3 03:51:12 Diarrhea Completed 201811/20/2018 Problem Code: R19.7; Problem Code Type: ICD-10; Not Available [facility] 3 03:51:12 Herpes zoster Completed 201607/16/2017 Problem Code: B02.9; Problem Code Type: ICD-10; Not Available [facility] 3 03:51:13 Adult health examination Completed 200407/16/2017 Problem Code: Z00.00; Problem Code Type: ICD-10; MD [address], [facility] [address] , [facility] 4 11:48:01 Posterior rhinorrhea Active [address] [facility] [address] , [facility] 4 11:52:50 Notes:*Problem Name: +fam Hx Coronary D *ICD-10 Codes: *Problem Status: inactive *Comments: *Note Date: 08/22/2004 Problem Notes None recorded. Procedures Surgical History Date Name Laterality Status Provider Name and Address Organization Details Recorded Time 4 Cerumen Removal completed GENARO LOWE, [facility] 10/22/2023 10:29:44 Imaging Results None recorded. Procedure Notes None recorded. Medical Equipment None Reported. Allergies No known drug allergies Medications Name Sig Start Date Stop Date Status Note LastModified by Organization Details LastModified Time melatonin 3 mg tablet Take 1 tablet by mouth every evening 06/29 completed Not Available Not Available Not Available terbinafine HCl 250 mg tablet TAKE 1 TABLET BY MOUTH EVERY DAY 06/29 completed Not Available Not Available Not Available Valtrex 1 gram tablet for herpes zoster/s hingles 1 po TID for 7 days 10/10 completed Not Available Not Available Not Available fluticasone propionate 50 mcg/actuatio n nasal spray,suspen hasmukh SHAKE LIQUID AND USE 1 SPRAY IN EACH NOSTRIL twice a day active Not Available Not Available No t Available Flexeril 10 mg tablet 1 TAB TID 11/13 completed Not Available Not Available Not Available Vitals Date Recorded Body height Body mass index (BMI) Body weight Body temperature Oxygen saturation Oxygen saturation in Arterial blood by Pulse oximetry Heart rate Systolic blood pressure Diastolic blood pressure Provider Name and Address Organization Details Last Updated DateTime 4 193.04 cm 31.8 kg/m2 331910. 76 g 98 [degF] 97 % 97 % 54 /min 112 mm[Hg] 66 mm[Hg] TRELL LOBO RN [facility] 4 09:15:16 Social History Question Answer Notes LastModified by Organizat ion Details LastModified Time Tobacco Smoking Status Never Smoker GENARO CHENG, [facility] 06/30/2023 08:29:28 Do You Have An Advance Directive? No Provided [email or web address] Information n ot available 10/22/2023 Would You Say That, In General, Your Health Is Good [email or web address] Information not available 10/22/2023 How Often Does Anyone, Including Family, Physically Hurt You? Never [email or web address] Information not available 10/22/2023 How Often Does Anyone, Including Family, Insult Or Talk Down To You? Never [email or web address] Information no t available 10/22/2023 How Often Does Anyone, Including Family, Threaten You With Harm? Never Information not available 10/22/2023 How Often Does Anyone, Including Family, Scream Or Curse At You? Never [email or web address] Information not available 10/22/2023 Within The Past 12 Months, You Worried That Your Food Would Run Out Before You Got Money To Buy More. Never True [email or web address] Information n ot available 10/22/2023 Within The Past 12 Months, The Food You Bought Just Didn't Last And You Didn't Have Money To Get More. Never True [email or web address] Information n ot available 10/22/2023 How Hard Is It For You To Pay For The Very Basics Like Food, Housing, Medical Care, And Heating? Would You Say It Is: Not Hard At All [email or web address] Information not available 10/22/2023 In The Past 12 Months, Has Lack Of Reliable Transportation Kept You From Medical Appointments, Meetings, Work Or From Getting Things Needed For Daily Living? No [email or web address] Information not available 10/22/2023 What Is Your Housing Situation Today? I Have Housing. [email or web address] Information not available 10/22/2023 How Often In The Past Year Have You Used Marijuana (including Smoking, Vaping, Dabbing, Or Edibles)? 2-3 Times Per Week Information not available 10/22/2023 How Often In The Past Year Have You Used Prescription Medications That Were Not Prescribed To You? Never [email or web address] Information n ot available 10/22/2023 How Often In The Past Year Have You Taken Your Own Prescription Medication More Than The Way It Was Prescribed Or For Different Reasons Than Its Intended Purpose? Never Information no t available 10/22/2023 How Often In The Past Year Have You Used Other Drugs (for Example, Heroin, Cocaine, Meth, Salvia, Inhalants)? Never [email or web address] Information not available 10/22/2023 Have You Ever Used IV Drugs? No [email or web address] Information not available 10/22/2023 Date Of Most Recent SBINS 10/22/2023 [email or web address] Information not available 10/22/2023 What Was The Date Of Your Most Recent Tobacco Screening? 10/22/2023 [email or web address] Information not available 10/22/2023 Has Tobacco Cessation Counseling Been Provided? No [email or web address] Information not available 10/22/2023 Do You Or Have You Ever Used Any Other Forms Of Tobacco Or Nicotine? No [email or web address] Information not available 10/22/2023 Sex: Male Functional Status None recorded. Mental Status None recorded. Family History Relationship Description Onset Age of this Age Resolved Age Notes Notes:*Problem: Father with history of coronary artery disease (bypass in 60s) and BPH. Mother with a history of hypertension, AFIB. One healthy sibling. Medical History No medical history recorded. Immunizations Vaccine Type Date Status Provider Name and Address Organization Details Recorded Time COVID-19, mRNA, LNP-S, PF, hortencia-sucrose, 30 mcg/0.3 mL 06/30/2023 completed BRENNA CHRISTIANSON, [facility] [address], [place], [address], [facility] 06/30/2023 09:04:25 Tdap 12/25/2021 completed Not Available [facility] 06:03:57 Influenza, split virus, quadrivalent, PF 03/01/2022 completed Not Available [facility] 02/14/2023 06:03:57 Influenza, split virus, quadrivalent, PF 03/05/2021 completed Not Available [facility] 02/14/2023 06:03:57 Influenza, split virus, quadrivalent, preservative 05/01/2018 completed Not Available [facility] 02/14/2023 06:03:58 COVID-19, mRNA, LNP-S, PF, 100 mcg/0.5mL dose or 50 mcg/0.25mL dose 07/20/2020 completed Not Available [facility] 02/15/20 06:03:58 COVID-19, mRNA, LNP-S, PF, 100 mcg/0.5mL dose or 50 mcg/0.25mL dose 08/17/2020 completed Not Available [facility] 02/15/20 06:03:58 COVID-19, mRNA, LNP-S, PF, 100 mcg/0.5mL dose or 50 mcg/0.25mL dose 03/05/2021 completed Not Available [facility] 02/15/20 06:03:58 COVID-19, mRNA, LNP-S, bivalent, PF, 30 mcg/0.3 mL dose 03/01/2022 completed Not Available [facility] 02/14/2023 06:03:58 Past Encounters Encounter ID Performer Location Encounter Start Date Encounter Closed Date Diagnosis/Indication Diagnosis SNOMED-CT Code [id number] RUBY CHAVEZ MD [address] [address] 10/22/2023 08:47:03 10/22/2023 10:21:38 Adult health examination 306111970 Thrombocyt openic disorder 516303261 Steatosis of liver 85531 1007 Posterior rhinorrhea 758 44304 Screening for malignant neoplasm of colon 759608888 Health Concerns Section Related Observation LastModified by Organization Detai ls LastModified Time None Recorded Concern Status LastModified by Organization Details LastModified Time None Recorded Payers Encounter Date Sequence Insurance Name Policy Number Policy Phelan Covered Member ID Phelan Member ID Guarantor Name 10/22/2023 1 [facility] (MEDICAID) Marc Arias [id number] Marc Arias Notes Date Note Type Note Provider Name and Address Organization Details Recorded Time 10/22/2023 text/html HPI Notes: Here for annual check up. He is doing well in general. He has noticed his socks leave a frederic when he takes them off at the end of the day more than in the past, no discomfort associated with this. he had a rash on his anterior torso, no itching or pain, perhaps related to wearing a brand new t-shirt, but the rash resolved and has not recurred. he has had an off and on dry mild cough for several months He had covid April, cough perhaps has persisted since then. He uses flonase daily which does help wondering about taking it twice a day, still has some ongoing nasal sx. does probably have some postnasal drip as well. No GERD. No dyspnea. He has been working on weight loss, on track, snacking less, focusing on healthy eating habits. His exercise routine has also improved, walking 30 minutes a day. 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 He has not been to an eye doctor in a long time. No skin concerns. RUBY CHAVEZ MD [address], [place], [address], [facility]. 10/22/2023 11:51:39
--- OUTSIDE RECORDS SUMMARY | 2023-10-22 11:54 | XMS_ITS | Encounter Summary ---
Author Organization [facility] [place] [address] Care Team Providers Care Domestic Cleaner Name Role Phone Concetta Gottlieb MD Primary Care Provider Encounter Details Date Type Department Care Team (Latest Contact Info) Description 03/28/2022 Travel Social History Tobacco Use Types Packs/Day Years Used Date Smoking Tobacco: Never Smokeless Tobacco: Never Sex and Gender Information Value Date Recorded Sex Assigned at Not on file Gender Identity Not on file Sexual Orientation Not on file documented as of this encounter Plan of Treatment Not on file documented as of this encounter Visit Diagnoses Not on filedocumented in this encounter Care Teams Domestic Cleaner Relationship Specialty Start Date End Date Concetta Gottlieb MD [address] [place] [address] PCP - General General Internal Medicine 02/01/22 documented as of this encounter
--- OUTSIDE RECORDS SUMMARY | 2023-10-22 11:54 | XMS_ITS | Encounter Summary ---
Author Organization [facility] Address [facility] [place] [address] Care Team Providers Care Mba Internship Name Role Phone Concetta Gottlieb MD Primary Care Provider [phone] Reason for Visit * Auth/Cert (Routine) Specialty Diagnoses / Procedures Referred By Contac t Referred To Contact Diagnoses thrombocytopenia Procedures PRO DIAGNOSTIC BONE MARROW BIOPSIES & ASPIRATIONS ([facility] MSURG) BONE MARROW BIOPSY AND ASPIRATION; DIAGNOSTIC Rita Leavitt MD [facility] DR HEMATOLOGY/[place] [address] [facility] Referral ID Status Reason Start Date Expiration Date Visits Re quested Visits Authorized [id number] 1 1 Encounter Details Date Type Department Care Team (Late st Contact Info) Description 06/25/2022 9:35 AM EDT - 06/25/2022 11:19 AM EDT Hospital Encounter [place] [phone] Rita Leavitt MD [facility] HEMATOLOGY/[place] [address] Discharge Disposition: Home Social History Tobacco Use Types Packs/Day Years [...] Sign Reading Time Taken Comments Blood Pressure 127/73 06/25/2022 11:00 AM EDT Pulse 49 06/25/2022 10:46 AM EDT Temperature 36.8 ??C (98.2 ??F) 06/25/2022 10:46 AM E DT Respiratory Rate - - Oxygen Saturation 99% 06/25/2022 11:00 AM EDT Inhaled Oxygen Concentration - - [...] 5pm or on a weekend: Call the [facility] mill control operator at and ask for the physician functional skills tutor covering for your doctor. Instructions following sedation [...] drainage occurs, [place] [address] [email or web address] [facility] documented in this encounter Medications at Time [...] procedure. Discharge to: Home Kathy Houston, MSN, CONTINUOUS IMPROVEMENT [employer] Nurse Practitioner Section of Hematology/Oncology [facility] Office phone: documented in this encounter Procedure Notes * Kathy Houston APRN - 06/25/2022 10:45 AM EDT BONE MARROW BIOPSY AND ASPIRATION PROCEDURE NOTE Bone Marrow Biopsy & Aspiration with Conscious Sedation - Unilateral Date/Time of Procedure: 06/25/2022 Proceduralist: Kathy Houston RN, MS, BANK PRESIDENT DIAGNOSIS: thrombocytopenia Pre-Procedure: (x) Consent signed and [...] 45 AM EDT CHROMO REPORT ACQUIRED Routine 10:45 AM EDT BONE MARROW FINAL REPORT Routine 023 10:45 AM EDT IRON STAIN, BONE MARROW Routine 06/26/19 23 10:45 AM EDT BONE MARROW PANEL (MC/CGP/APD) Routine 06/25/2022 10:45 AM EDT Diagnostic Bone Marrow Biopsies & Aspirations ([id number]) Yes 06/25/2022 10:35 AM EDT thrombocytopenia HEMOGRAM Routine 06/25/2022 10:05 AM EDT DIFFERENTIAL, AUTOMATED Routine 06/26/19 10:05 AM EDT HC CBC,PLT & AUTO DIFF Routine 10:05 AM EDT ([facility] MSURG) BONE MARROW BIOPSY AND ASPIRATION; DIAGNOSTIC Routine 06/25/2022 9:44 AM EDT documented in this encounter Results * chromo report acquired (06/25/2022 10:45 AM EDT) Cytogenetics Acquired Report Final Report ? [id number] Specimen Type: Bone Marrow Specimen Condition: ~3.0mL, adequate Collection Date/Time: 06/25/2022 10:45 Received Date/Time: 06/25/2022 14:20 Indication: ??Thrombocytopen ia ---Results--- Please see the chromosome analysis scanned report in eD-H corresponding to this specimen. ??This report was completed by [facility] and is located in 'Chart Review' under the 'Media' tab. ??The document name is titled External Genetic Study. ---Karyotype--- See comments. ---Preparation-- - Culture Type: Other FISH Method: ??N/A ---Comments--- The specimen was referred to [facility] ([place], [place], Tel: ?? ) for cytogenetic analysis. ---Disclaimer--- Please note that the above is not a patient lab result and does not have an interpretative component. ??It is only provided to indicate the location of the final report in the EMR for this individual, which has the official interpretations. 07.05.22 (Electronic Signature) Verified By: Pablito Kaba [facility] 06/25/2022 10:4 5 AM EDT 06/25/2022 2:20 PM EDT Rita Leavitt MD HEMATOLOGY ORDER JACKELINE [facility] [place] [address] * Bone Marrow Final Report (06/25/2022 10:45 AM EDT) Bone Marrow Final Report [id number] ? Location: [facility] The signing pathologist has (i) examined the [...] Verified: ??07/01/2022 8:28 ?? Pathologist Performed at: ??-[facility] Dept. of Pathology, [place] [address] Livestock Rancher: Ravi Emerson MD, AP, ??CLIA Certificate: [id number] DISCUSSION The patient's history of splenomegaly and [...] sideroblasts. . DIFFERENTIAL Band/Seg 24%; Lymph 7%; [place] 3%; Eos 7%; Baso 0%; Metamyelocyte 5%; [...] were developed by the clinical laboratory at [facility]. Antibody specificities have been verified on tissues [...] x 0.2 cm in aggregate Tissue Description: [place]att[place] soft tissue fragments. Submitted in: A2 Sections/Processing: [...] Sanchez Verified: ??06/26/2022 14:54 ??Pathologist Performed at: ??-[facility] Dept. of Pathology, [place] [address] Livestock Rancher: Ravi Emerson MD, FCAP, ??CLIA Certificate: [id number] DISCUSSION The WX79-[id number] low-SSC flow scatterplot region represents ~2% of [...] by the Clinical Flow Cytometry Laboratory at [facility]. It has not been cleared or approved [...] high complexity clinical laboratory testing. SPECIMEN PROCESSING [id number] Cells for immunophenotypic analysis were derived from [...] CLINICAL INFORMATION 47M w/hx thrombocytopenia and splenomegaly. [facility] AP Specimen 06/25/2022 10:4 5 AM EDT Rita Leavitt MD PATHOLOGY/CYTOLO GY ORDERABLES Performing Organization Address [facility] de Phone Number [facility] [place] [address] * Myeloid Seq Panel (06/25/2022 10:45 AM EDT) Bone Marrow 06/25/2022 10:4 5 AM EDT 06/26/2022 7:54 AM EDT Narrative Resulting Agency Comment Spec In Lab Rita Leavitt MD CHEMISTRY ORDERA BLES Performing Organization Address [facility] Co de Phone Number [facility] [place] [address] * Immunophenotyping Flow Cytometry (06/25/2022 10:45 AM EDT) Immunophenotyping Flow See Comment [facility] Comment: When completed by the Pathologist, the Flow Cytometry Report ([id number]) will display under the Pathology Results section within eDH. Bone Marrow 06/25/2022 10:4 5 AM EDT 06/25/2022 11:00 AM EDT Narrative Resulting Agency Comment Spec In Lab Rita Leavitt MD HEMATOLOGY ORDER JACKELINE Performing Organization Address City/[facility]/ZIP Co de Phone Number [facility] [place] [address] * Iron Stain, Bone Marrow (06/25/2022 10:45 AM EDT) Iron Stain BM See Comment [facility] Comment:See Bone Marrow Repo rt [id number] under Hematopathology Reports. Bone Marrow 06/25/2022 10:4 5 AM EDT 06/25/2022 11:00 AM EDT Narrative Resulting Agency Comment Spec In Lab Rita Leavitt MD HEMATOLOGY ORDER JACKELINE [facility] [place] [id number] * Differential, Automated (06/25/2022 10:05 AM EDT) Neutrophils % 51.9 % [facility] Neutr Abs (ANC) 2.14 1.70 - 6.10 x10(3)/[facility] Lymphocytes % 38.0 % [facility] Lymphocytes Abs 1.6 0.9 - 3.2 x10(3)/[facility] Monocytes % 6.3 % [facility] Monocyte Abs 0.3 0.3 - 0.9 x10(3)/[facility] Eosinophils % 3.6 % [facility] Eosinophils Abs 0.2 0.0 - 0.4 x10(3)/[facility] Basophils % 0.2 % [facility] Basophils Abs 0.0 0.0 - 0.1 x10(3)/[facility] Immature Gran % 0.00 % [facility] Comment: Immature granulocytes(IG's)percentage and absolute count will include metamyelocytes, myelocytes, and promyelocytes. Blood smears from CBCs yielding IG's will be scanned manually for concordance. If this scan disagrees with the automated IG or if promyelocytes are noted, a manual differential will be performed. May Gran Abs 0.00 0.00 - 0.04 x10(3)/[facility] Blood 06/25/2022 10:0 5 AM EDT 06/25/2022 10:40 AM EDT Narrative Resulting Agency Comment Spec In Lab Rita Leavitt MD HEMATOLOGY ORDER JACKELINE [facility] [place] [address] * (ABNORMAL) Hemogram (06/25/2022 10:05 AM EDT) WBC 4.1 4.0 - 9.5 x10(3)/[facility] RBC 5.18 4.58 - 5.54 x10(6)/[facility] Hemoglobin 15.4 13.7 - 16.5 g/dL [facility] Hematocrit 44.8 40.5 - 48.5 % [facility] MCV 86.5 82.9 - 93.1 fL [facility] MCH 29.7 27.5 - 32.1 pg [facility] MCHC 34.4 32.0 - 35.7 g/dL [facility] Platelets 141(L) 145 - 357 x10(3)/[facility] RDWSD 39.2 36.0 - 45.0 [facility] RDWCV 12.3 11.4 - 13.8 % [facility] MPV 10.9 7.6 - 12.9 [facility] nRBC % Auto 0.0 % [facility] nRBC Abs Auto 0.000 0.000 - 0.000 x10(3)/[facility] Blood 06/25/2022 10:0 5 AM EDT 06/25/2022 10:40 AM EDT Narrative Resulting Agency Comment Spec In Lab Rita Leavitt MD HEMATOLOGY [place] [address] documented in this encounter Visit Diagnoses Not [...] Intravenous, EVERY 12 HOURS, First dose on 06/25/22 at 1015, Until Discontinued, Day of Surgery (Day of Procedure), Routine 1015 (Due) Continuous Medication Order 06/23/2022 06/24/2022 06/25/2022 sodium chloride 0.9% infusion 1,000 mL, at 100 mL/hr, Intravenous, CONTINUOUS, Starting on 06/25/22 at 1015, Until 06/25/22 at 1643, Day of Surgery (Day of Procedure) 1015 (Due) PRN Medication Order 06/23/2022 06/24/2022 06/25/2022 fentaNYL (pf) (50 mcg/mL) multi-dose injection 25-50 mcg 25-50 mcg, Intravenous, EVERY 5 MIN PRN, Starting on e 06/25/22 at 0945, Until 06/25/22 at 1643, Pain, Hold for respiratory rate less than 8 breaths per minute. (maximum dose 200 mcg), Intra-Operative (Intra-Procedure), Routine 1035 (Given - Provid er: Yoana Aldrich RN) flumazeniL (Romazicon) (0.1 mg/mL) injection 0.2 mg 0.2 mg, Intravenous, EVERY 2 MIN PRN, Starting on 06/25/22 at 0945, Until 06/25/22 at 1643, Benzodiazepine reversal, 0.2 mg intravenous, every 2 minutes PRN for total of 5 doses for respiratory rate less than 8 or SpO2 less than 90% despite supplement O2., Intra-Operative (Intra-Procedure), Routine lidocaine (Xylocaine) 1% (10 mg/mL) injection 3 mg 3 mg (0.3 mL), Subcutaneous, ONCE PRN, 1 dose, Starting on 06/25/22 at 0945, Until 06/25/22 at 1643, for discomfort with PIV insertion, Day of Surgery (Day of Procedure), Routine midazolam (pf) (Versed) (1 mg/mL) multi-dose injection 0.5-2 mg 0.5-2 mg, Intravenous, EVERY 5 MIN PRN, Starting on 06/25/22 at 0945, Until 06/25/22 at 1643, Sleep, Anxiety, Hold for delirium/agitation. [...] Routine documented in this encounter Care Teams Mba Internship Relationship Specialty Start Date End Date Concetta Gottlieb MD [address] [place] [address] PCP - General General Internal Medicine 02/01/22 documented as of this encounter
--- OUTSIDE RECORDS SUMMARY | 2023-10-22 11:54 | XMS_ITS | Encounter Summary ---
[place] [address] Care Team Providers Care Detective Homicide Squad Name Role Phone Concetta Gottlieb MD Primary Care Provider Encounter Details Date Type Department Care Team (Latest Contact Info) Description 05/22/2022 Travel Social History Tobacco Use Types Packs/Day [...] on filedocumented in this encounter Care Teams Detective Homicide Squad Relationship Specialty Start Date End Date Concetta Gottlieb MD [address] [place] [address] PCP - General General Internal Medicine 02/01/22 documented as of this encounter
--- OUTSIDE RECORDS SUMMARY | 2023-10-22 11:54 | XMS_ITS | Encounter Summary ---
Author Organization [facility] Address [facility] [place] [address] Care Team Providers Care Preparer Making Department Name Role Phone Concetta Gottlieb MD Primary Care Provider [phone] Encounter Details Date Type Department Care Team (Latest Contact Info) Description 02/19/2023 Travel Social History Tobacco Use Types Packs/Day [...] on filedocumented in this encounter Care Teams Preparer Making Department Relationship Specialty Start Date End Date Concetta Gottlieb MD [address] [place] [address] PCP - General General Internal Medicine 02/01/22 documented as of this encounter
--- OUTSIDE RECORDS SUMMARY | 2023-10-22 11:54 | XMS_ITS | Encounter Summary ---
Author Organization [facility] Address [facility] [place] [address] Care Team Providers Care Recreation Superintendent Name Role Phone Concetta Gottlieb MD Primary Care Provider [phone] Encounter Details Date Type Department Care Team (Late st Contact Info) Description 05/22/2022 1:30 PM EST Office Visit Hematology/Oncology at [address] [phone] Rita Leavitt MD [facility] DR HEMATOLOGY/[place] [address] Joyce Epstein APRN [facility] DR HEMATOLOGY/[place] [address] Thrombocytopenia Social History Tobacco Use Types Packs/Day Years Used Date Smoking Tobacco: Never Smokeless Tobacco: Never Sex and Gender Information Value Date Recorded Sex Assigned at Not on file Gender Identity Not on file Sexual Orientation Not on file documented as of this encounter Last Filed Vital Signs Vital Sign Reading Time Taken Comments Blood Pressure 132/74 05/22/2022 1:29 PM EST Pulse 57 05/22/2022 1:29 PM EST Temperature 36.3 ??C (97.3 ??F) 05/22/2022 1:29 PM ES T Respiratory Rate 16 05/22/2022 1:29 PM EST Oxygen Saturation 100% 05/22/2022 1:29 PM EST Inhaled Oxygen Concentration - - Weight 123.4 kg (272 lb) 05/22/2022 1:29 PM EST Height 195.6 cm (6' 5) 05/22/2022 1:29 PM EST Body Mass Index 32.25 05/22/2022 1:29 PM EST documented in this encounter Progress Notes * Rita Leavitt MD - 05/22/2022 1:30 PM EST Hematology Clinic [facility] [place] [address] HEMATOLOGY PATIENT EVALUATION HISTORY OF PRESENT ILLNESS: [...] cell counts. Interim History: Grabiel returns today after a CT chest abdomen and pelvis. He has been feeling well. He is anxious over the diagnosis. He came in person because he appreciates the [id number] contact which I appreciate as well. Overall he has been feeling well. No B symptoms. No bleeding or bruising. No new health events. PMHX: Chronic rhinitis Overweight PSHX: [place] teeth when he was a teenager without [...] 24 hrs: Temp Pulse Resp BP SpO2 05/22/22 1329 36.3 ??C (97.3 ??F) 57 16 132/74 100 % GENERAL: Marc Arias appears well and [...] previous visit (from the past 24 hour(s)). RADIOLOGY STUDIES REVIEWED: 05/14/22 CT [facility] Impression: 1. No significant intrathoracic findings. No [...] Mild thrombocytopenia Work-up before coming to the frickertron checker office: 11/26/2018: CBC platelet count at 120K [...] The only CBC we have is from 2018 at which point his platelet count was 220,000. In October 2021 it was 107,000, and in December it was 100,000. Recent CT at [facility] confirm no adenopathy however there was splenomegaly at 16 cm. Given his height of 6 feet 5 inches it is unclear whether this truly is significant splenomegaly. However, given the splenomegaly and persistent thrombocytopenia, I would recommend a bone marrow biopsy. Splenic marginal zone lymphoma or hairy cell leukemia are possible. MDS is less likely I reviewed the procedure of a bone marrow biopsy with him. I will order it for him, and I will see him back in clinic 2 weeks after the procedure is done to review results. He already has an appointment in the low end of June, which we may change depending on the timing of the bone marrow biopsy. He would like sedation. Health assessment was completed today. I explained the need for a BMBx. I reviewed the procedure and risks of pain, bleeding and infectionalthough the latter 2 are less common. All questions were answered. he Consents to treatment. Plan: ?? Sedated bone marrow biopsy. Preferably on June 10 or . Return to clinic on June 19 or with EMB. ?? Anesthesia health assessment completed today ?? CBC at time of BMBx will automatically be drawn ?? Cancel previous appointments at the end of June We reviewed our impression and recommendations with [...] unspecified documented in this encounter Care Teams Recreation Superintendent Relationship Specialty Start Date End Date Concetta Gottlieb MD [address] [place] [id number] PCP - General General Internal Medicine 02/01/22 documented as of this encounter
--- OUTSIDE RECORDS SUMMARY | 2023-10-22 11:54 | XMS_ITS | Clinical Summary ---
Author Organization [facility] Address [address] [place] [address] Care Team Providers Care Leak Patcher Name Role Phone Unavailable Primary Care Provider Unavailabl e Social History Tobacco Use Types Packs/Day Years Used Date Smoking Tobacco: Never Assessed Sex and Gender Information Value Date Recorded Sex Assigned at Not on file Gender Identity Not on file Sexual Orientation Not on file Plan of Treatment Health Maintenance Due Date Last Done Comments Hepatitis B Vaccine (1 of 3 - 19+ 3-dose series) 02/04 COVID-19 Vaccine ( season) 2022 Hepatitis C Screen Completed 01/01/2022 Procedures Procedure Name Priority Date/Time Associated Diagnosis Comments HEPATITIS C AB W REFLEX TO HCV RNA BY PCR Routine 01/01/2022 11:50 EDT from Last 3 Months or Most Recently Relevant to Health Maintenance Results * HEPATITIS C AB W REFLEX TO HCV RNA BY PCR (01/01/2022 11:50 EDT) Hep C Antibody Negative Negative 01/03/2022 8:52 EDT [facility] Blood VENOUS BLOOD / Unknown 01/01/2022 11:50 EDT 01/02/2022 16:51 EDT Provider Outr Resulting Lab CHEMISTRY & BLOOD GAS ORDERABLES [facility] [address] [place] [address] from Last 3 Months or Most Recently Relevant to Health Maintenance
--- OUTSIDE RECORDS SUMMARY | 2023-10-22 11:54 | XMS_ITS | Clinical Summary ---
Author Organization [facility] Address [facility] [place] [address] Care Team Providers Care Tool Design Engineer Name Role Phone Concetta Gottlieb MD Primary Care Provider [phone] Allergies No known active allergies Medications Medication Sig Dispensed Refills Start Date End Date Status ergocalciferol, vitamin D2, (VITAMIN D ORAL) Take 1 tablet by mouth daily. Active Active Problems Problem Noted Date Diagnosed Date Thrombocytopenia 03/28/2022 Social History Tobacco Use Types Packs/Day Years [...] on file Sexual Orientation Not on file Last Filed Vital Signs Vital Sign Reading [...] Mass Index 32.15 02/19/2023 2:53 PM EST Plan of Treatment Health Maintenance Due Date Last Done Comments CT Colonography 1974 Colonoscopy 1974 Colorectal Cancer Screening 1974 FIT DNA 1974 FIT 1974 Sigmoidoscopy (10 year) with FIT yearly 1974 Sigmoidoscopy 1974 HIV screen 02/05/1992 Hepatitis C Screening 02/05/1992 Lipid Screening 02/05/1992 Hepatitis B vaccine (0-59 yrs) (1) 1993 Tdap adult 1993 Tetanus vaccine 1993 Covid-19 Vaccine ( - season) 2022 Influenza (Flu) vaccine (1 o f 1 - Influenza standard series) 12/07/2023 Diabetes Screening (HgbA1C or Glucose) 03/28/2025 Procedures Procedure Name Priority Date/Time Associated Diagnosis Comments COMPREHENSIVE METABOLIC PANEL (NON-FASTING) Routine 03/28/2022 11:36 AM EST Thrombocytopenia from Last 3 Months or Most Recently Relevant to Health Maintenance Results * (ABNORMAL) Comprehensive metabolic panel (non-fasting) (03/28/2022 11:36 AM EST) Glucose Lvl 89 65 - 199 mg/dL [facility] Comment:Diabetes: >=200 mg/d L plus symptoms BUN 14 10 - 20 mg/dL [facility] Creatinine 0.72(L) 0.80 - 1.50 mg/dL [facility] Sodium 140 135 - 145 mmol/L [facility] Potassium 4.3 3.5 - 5.0 mmol/L [facility] Comment: Please note: ??Patients with WBC >100,000 may have falsely elevated Potassium levels. ??For accurate Potassium quantification in these patients send serum separator tube (gold top) for subsequent determinations. ??Contact the Clinical Chemistry Laboratory if there are any questions. Chloride 106 98 - 107 mmol/L [facility] CO2 24 22 - 31 mmol/L [facility] Anion Gap 10 5 - 15 mmol/L [facility] Calcium 9.2 8.5 - 10.5 mg/dL [facility] Total Protein 6.9 6.1 - 8.0 g/dL [facility] Albumin 4.4 3.2 - 5.2 g/dL [facility] AST 22 0 - 39 unit/L [facility] ALT 27 0 - 55 unit/L [facility] Alk Phos 50 40 - 130 unit/L [facility] Total Bilirubin 0.5 0.2 - 1.3 mg/dL [facility] Estimated GFR 113 >=60 mL/min/1. 73 m?? [facility] Comment: This patient's estimated GFR [...] Lab Rita Leavitt MD CHEMISTRY ORDERA BLES [facility] [place] [address] from Last 3 Months or Most Recently Relevant to Health Maintenance Care Teams Tool Design Engineer Relationship Specialty Start Date End Date Concetta Gottlieb MD [address] [place] [address] PCP - General General Internal Medicine 02/01/22
--- OUTSIDE RECORDS SUMMARY | 2023-10-22 11:54 | XMS_ITS | Encounter Summary ---
Author Organization [facility] Address [facility] [place] [address] Care Team Providers Care Freight Checker Name Role Phone Concetta Gottlieb MD Primary Care Provider [phone] Encounter Details Date Type Department Care Team (Late st Contact Info) Description 07/22/2022 Telephone Hematology [place] [phone] Rita Leavitt MD [facility] DR HEMATOLOGY/[place] [address] Social History Tobacco Use Types Packs/Day Years [...] on file documented as of this encounter Miscellaneous Notes * Telephone Encounter - Rita Leavitt MD - 07/23/2022 8:30 PM EDT error documented in this encounter Plan of Treatment Not on file documented as of this encounter Visit Diagnoses Not on filedocumented in this encounter Care Teams Freight Checker Relationship Specialty Start Date End Date Concetta Gottlieb MD [address] [place] [address] PCP - General General Internal Medicine 02/01/22 documented as of this encounter
--- OUTSIDE RECORDS SUMMARY | 2023-10-22 11:54 | XMS_ITS | Encounter Summary ---
Author Organization [facility] Address [facility] [place] [address] Care Team Providers Care Meat Cooler Name Role Phone Concetta Gottlieb MD Primary Care Provider [phone] Encounter Details Date Type Department Care Team (Latest Contact Info) Description 07/02/2022 Travel Social History Tobacco Use Types Packs/Day [...] on filedocumented in this encounter Care Teams Meat Cooler Relationship Specialty Start Date End Date Concetta Gottlieb MD [address] [place] [address] PCP - General General Internal Medicine 02/01/22 documented as of this encounter
--- OUTSIDE RECORDS SUMMARY | 2023-10-22 11:54 | XMS_ITS | Encounter Summary ---
Author Organization Formerly [facility] Address [facility] [place] [address] Care Team Providers Care Donor Processor Name Role Phone Concetta Gottlieb MD Primary Care Provider [phone] Encounter Details Date Type Department Care Team (Late st Contact Info) Description 07/23/2022 Telephone Hematology [place] [phone] Rita Thibodeaux MD [facility] [address] HEMATOLOGY/[place] [address] Social History Tobacco Use Types Packs/Day Years [...] as of this encounter Miscellaneous Notes * Addendum Note - Rita Thibodeaux MD - 07/23/2022 8:48 PM EDTAddended by: RITA THIBODEAUX on: 07/23/2022 08:48 PM Modules accepted: Orders * Telephone Encounter - Rita Thibodeaux MD - 07/23/2022 3:47 PM EDT Telephone call I called Mr. Arias today with results of his cytogenetics and myeloid sequencing panel. Both of these were completely normal. This completes our work-up for his mild thrombocytopenia and mild splenomegaly. He remains anxious and wondered whether the he should seek a second opinion. I reassured him that the thrombocytopenia is very mild and there really is no further work-up to do at this time. Thespleen remains slightly enlarged but given his stature, this may be normal for his body habitus. What I would recommend is continuing to follow him over time, as we have planned, and watch for trendsover time. I would not recommend any further follow-up at this time. He understood and agreed with the plan. Given his sig anxiety we are happy to see him one more time in fall 2022 to follow plt count. This note was written or modified using [employer] voice recognition software. The final note was screened for mistakes. Please excuse any remaining errors. documented in this encounter Plan of Treatment Not on file documented as of this encounter Visit Diagnoses Diagnosis Thrombocytopenia Thrombocytopenia, unspecified documented in this encounter Care Teams Donor Processor Relationship Specialty Start Date End Date Concetta Gottlieb MD [facility] [address] [place] [address] PCP - General General Internal Medicine 02/01/22 documented as of this encounter
--- OUTSIDE RECORDS SUMMARY | 2023-10-22 11:54 | XMS_ITS | Encounter Summary ---
[place] [address] Care Team Providers Care Care Management Coordinator Name Role Phone Concetta Gottlieb MD Primary Care Provider [phone] Reason for Visit * Reason Onset Date Comments Prior Authorization 07/10/2022 Molecular ca ncer testing CPT 80117 is not a covered benefit. The test will be covered under the inpatient stay of [id number]. Encounter Details Date Type Department Care Team (Late st Contact Info) Description 07/10/2022 Telephone [place] [address] Ruth Elliott Prior Authorization (Molecular cancer testing CPT 37679 is not a covered benefit. The test will be covered under the inpatient stay of [id number]./) Social History Tobacco Use Types Packs/Day Years Used Date Smoking Tobacco: Never Smokeless Tobacco: Never Alcohol Use Standard Drinks/Week Comments Yes 0 (1 standard drink = 0.6 oz pur e alcohol) occasional [facility] Inpatient Questions Answer Date Recorded Does Anyone [...] encounter Miscellaneous Notes * Telephone Encounter - Ruth Elliott - 07/10/2022 4:04 PM EDTSummary: AUTH COVERED UNDER INPATIENT STAY Molecular cancer testing: CPT 78062 is a NOT covered benefit: I received an e-mail from Madeline in [employer] ([employer] 07/02/2022) requesting coverage review for CPT 70756 which is to be done on the patient???s sample tissue obtained on06/25/2022, Ordering provider is Rita Leavitt MD. CPT 21415 is nota covered benefit with [place] Medicaid. The test will be covered under the inpatient stay of [id number]. I will e-mail Madeline to let her know of approved coverage. documented in this encounter Plan of Treatment Not on file documented as of this encounter Visit Diagnoses Not on filedocumented in this encounter Care Teams Care Management Coordinator Relationship Specialty Start Date End Date Concetta Gottlieb MD [address] [place] [address] PCP - General General Internal Medicine 02/01/22 documented as of this encounter
--- OUTSIDE RECORDS SUMMARY | 2023-10-22 11:54 | XMS_ITS | Encounter Summary ---
[place] [address] Care Team Providers Care Hotel Director Name Role Phone Concetta Gottlieb MD Primary Care Provider [phone] Encounter Details Date Type Department Care Team (Latest Contact Info) Description 03/28/2022 11:28 AM EST - 03/28/2022 11:59 PM EST Hospital Encounter Hematology [place] [address] Thrombocytopenia Discharge Disposition: Home Social History Tobacco Use Types Packs/Day Years Used Date Smoking Tobacco: Never Smokeless Tobacco: Never Sex and Gender Information Value Date Recorded Sex Assigned at Not on file Gender Identity Not on file Sexual Orientation Not on file documented as of this encounter Medications at Time of Discharge Medication Sig Dispensed Refills Start Date End Date melatonin 5 mg Tablet Take by mouth nightly as needed. 02/19/2023 documented as of this encounter Plan of Treatment Not on file documented as of this encounter Procedures Procedure Name Priority Date/Time Associated Diagnosis Comments SMEAR REVIEW REPORT Routine 03/28/2022 1 2:04 PM EST PERIPHERAL SMEAR REVIEW Routine 03/28/2022 11:36 AM EST Thrombocytopenia SCAN, PERIPHERAL BLOOD Routine 11:36 AM EST HC VENIPUNCTURE Routine 03/28/2022 11:36 AM EST Thrombocytopenia HEMOGRAM Routine 03/28/2022 11:36 AM EST Thrombocytopenia DIFFERENTIAL, AUTOMATED Routine 03/28/2022 11:36 AM EST Thrombocytopenia PLATELET COUNT Routine 03/28/2022 11:36 AM EST Thrombocytopenia HC CBC,PLT & AUTO DIFF Routine 11:36 AM EST Thrombocytopenia JENNY ANTIBODY SCREEN Routine 03/28/2022 1 1:36 AM EST Thrombocytopenia COMPREHENSIVE METABOLIC PANEL (NON-FASTING) Routine 03/28/2022 11:36 AM EST Thrombocytopenia documented in this encounter Results * Smear Review Report (03/28/2022 12:04 PM EST) Smear Review Report [id number] ? Location: The signing pathologist has (i) examined the relevant preparation(s) for the specimen(s) and (ii) rendered or confirmed the diagnosis(es). . ? Smear Review DIAGNOSIS PERIPHERAL BLOOD, SMEAR REVIEW: Thrombocytopenia, no significant platelet clumping (see Discussion). Electronically signed by: ?Reinaldo BARNES Tremaine X Verified: ??03/28/2022 16:08 ??Pathologist Performed at: ??-[facility] Dept. of Pathology, [place] [address] Respiratory Coordinator: Ravi Emerson MD, FCAP, ??CLIA Certificate: [id number] DISCUSSION WBCs and RBCs show adequate morphology; no dysplastic features or circulating blasts. Platelets show thrombocytopenia and adequate morphology, no significant platelet clumping seen. The morphologic findings are nonspecific, but no significant platelet clumping, increase in schistocytes, or features of dyspoiesis are appreciated. Factors which may contribute to thrombocytopenia include peripheral utilization or destruction, medications, toxin exposure, infections, sequestration, nutritional deficits, and autoimmune disorders. ADDITIONAL STUDIES 03/28/22 11:36 EST ?? WBC ??5.2 x10(3)/mcL (Ref. Range 4.0 - 9.5) ?? RBC 5.04 x10(6)/mcL (Ref. Range 4.58 - 5.54) ?? Hgb 15.0 g/dL (Ref. Range 13.7 - 16.5) ?? Hct 43.8 % (Ref. Range 40.5 - 48.5) ?? MCV 86.9 fL (Ref. Range 82.9 - 93.1) ?? MCH 29.8 pg (Ref. Range 27.5 - 32.1) ?? MCHC 34.2 g/dL (Ref. Range 32.0 - 35.7) ?? RDWSD 40.0 fL (Ref. Range 36.0 - 45.0) ?? RDWCV 12.5 % (Ref. Range 11.4 - 13.8) ?? Platelet 112 x10(3)/mcL (Ref. Range 145 - 357) ?? MPV 11.0 fL (Ref. Range 7.6 - 12.9) ?? Immature Plt % * 5.3 % (Ref. Range 0.0 - 7.4) ?? NRBC% auto 0.0 % ?? NRBC Absolute 0.000 x10(3)/mcL (Ref. Range 0.000 - 0.000) ?? Neutrophil % 56.3 % ?? Immature Gran % * 0.20 % ?? Lymph % 30.0 % ?? Monocyte % 8.0 % ?? Eos % 5.3 % ?? Basophil % 0.2 % ?? Neutro Absolute 2.95 x10(3)/mcL (Ref. Range 1.70 - 6.10) ?? Immature Gran 0.01 x10(3)/mcL (Ref. Range 0.00 - 0.04) ?? Lymph Absolute 1.6 x10(3)/mcL (Ref. Range 0.9 - 3.2) ?? Monocy Absolute 0.4 x10(3)/mcL (Ref. Range 0.3 - 0.9) ?? Eos Absolute 0.3 x10(3)/mcL (Ref. Range 0.0 - 0.4) ?? Baso Absolute 0.0 x10(3)/mcL (Ref. Range 0.0 - 0.1) CLINICAL INFORMATION A 47-year-old man for whom smear review was requested to evaluate chronic thrombocytopenia. [facility] 03/28/2022 12:0 4 PM EST Zenaida Lozada MD PATHOLOGY/CYTOLO GY ORDERABLES Performing Organization Address City/[facility]/[place] [address] * Scan, Peripheral Blood (03/28/2022 11:36 AM EST) Plat Estimate Decreased [facility] RBC Morphology Normal [facility] Blood 03/28/2022 11:3 6 AM EST 03/28/2022 11:41 AM EST Narrative Resulting Agency Comment Spec In Lab Zenaida Lozada MD HEMATOLOGY ORDER JACKELINE Performing Organization Address City/[facility] Co de Phone Number [facility] [place] [phone] * Differential, Automated (03/28/2022 11:36 AM EST) Pathologist [facility] Neutrophils % 56.3 % [facility] Neutr Abs (ANC) 2.95 1.70 - 6.10 x10(3)/[facility] Lymphocytes % 30.0 % [facility] Lymphocytes Abs 1.6 0.9 - 3.2 x10(3)/[facility] Monocytes % 8.0 % [facility] Monocyte Abs 0.4 0.3 - 0.9 x10(3)/[facility] Eosinophils % 5.3 % [facility] Eosinophils Abs 0.3 0.0 - 0.4 x10(3)/[facility] Basophils % 0.2 % [facility] Basophils Abs 0.0 0.0 - 0.1 x10(3)/[facility] Immature Gran % 0.20 % [facility] Comment: Immature granulocytes(IG's)percentage and absolute count will include metamyelocytes, myelocytes, and promyelocytes. Blood smears from CBCs yielding IG's will be scanned manually for concordance. If this scan disagrees with the automated IG or if promyelocytes are noted, a manual differential will be performed. May Gran Abs 0.01 0.00 - 0.04 x10(3)/[facility] Blood 03/28/2022 11:3 6 AM EST 03/28/2022 11:41 AM EST Narrative Resulting Agency Comment Spec In Lab Zenaida Lozada MD HEMATOLOGY ORDER JACKELINE [facility] [place] [address] * (ABNORMAL) Hemogram (03/28/2022 11:36 AM EST) WBC 5.2 4.0 - 9.5 x10(3)/[facility] RBC 5.04 4.58 - 5.54 x10(6)/[facility] Hemoglobin 15.0 13.7 - 16.5 g/dL [facility] Hematocrit 43.8 40.5 - 48.5 % [facility] MCV 86.9 82.9 - 93.[address] [facility] MCH 29.8 27.5 - 32.[address] [facility] MCHC 34.2 32.0 - 35.7 g/dL [facility] Platelets 112(L) 145 - 357 x10(3)/[facility] RDWSD 40.0 36.0 - 45.[address] [facility] RDWCV 12.5 11.4 - 13.8 % [facility] MPV 11.0 7.6 - 12.[address] [facility] nRBC % Auto 0.0 % [facility] nRBC Abs Auto 0.000 0.000 - 0.000 x10(3)/[facility] Blood 03/28/2022 11:3 6 AM EST 03/28/2022 11:41 AM EST Narrative Resulting Agency Comment Spec In Lab Zenaida Lancaster Blanca Lozada MD HEMATOLOGY ORDER JACKELINE [facility] [place] [address] * (ABNORMAL) Comprehensive metabolic panel (non-fasting) (03/28/2022 [...] MD CHEMISTRY ORDERA BLES Performing Organization Address [facility] Co de Phone Number [facility] [place] [address] * Peripheral Smear Review (03/28/2022 11:36 AM EST) Periph Smear Rev See Comment [facility] Comment: When completed by the Pathologist, report [id number] will display under Hematopathology Reports. Blood 03/28/2022 11:3 6 AM EST 03/28/2022 11:41 AM EST Narrative Resulting Agency Comment Spec In Lab Rita Leavitt MD HEMATOLOGY ORDER JACKELINE Performing Organization Address [facility]/ZIP Co de Phone Number [facility] [place] [address] * (ABNORMAL) Platelet count (03/28/2022 11:36 AM EST) Platelets 112(L) 145 - 357 x10(3)/mc L [facility] Plat Immature % 5.3 0.0 - 7.4 % [facility] Comment: Limitation of the Immature Platelet Fraction (IPF)-May be less reliable when the platelet count is less than 40k399/uL due to statistical imprecision. The IPF value [...] in a decreased state of production. References: [employer] The Clinical Value of the Immature Platelet Fraction (IPF) in Cell Recovery Document Number [id number] 09/2010 [employer] The Role of the Immature Platelet Fraction (IPF) in the Differential Diagnosis of Thrombocytopenia, Document [id number] V008/16/13 P008/18 Blood 03/28/2022 11:3 6 AM EST 03/28/2022 11:41 AM EST Narrative Resulting Agency Comment Spec In Lab Rita Leavitt MD HEMATOLOGY ORDER JACKELINE [facility] [place] [address] * JENNY Antibody Screen (03/28/2022 11:36 AM EST) Antinuclear Ab Negative Negative [facility] Comment: This antinuclear antibody (JENNY) screen is a qualitative test performed using a fluoroenzyme immunoassay on the [employer] Direct[employer] 250 analyzer. This screen is designed to [...] performed by the Special Chemistry Laboratory at [facility]. This change in testing location is associated [...] performed by the Special Chemistry Laboratory at [facility]. This change in testing location is associated with a change is testing method and reference intervals. Please review the results of this test in association with the posted reference intervals. Blood 03/28/2022 11:3 6 AM EST 03/29/2022 6:56 AM EST Narrative Resulting Agency Comment Spec In Lab Rita Leavitt MD IMMUNOLOGY ORDER JACKELINE [facility] [place] [address] * DNA Antibody (Double-Stranded) (03/28/2022 11:36 AM [...] performed by the Special Chemistry Laboratory at [facility]. This change in testing location is associated with a change is testing method and reference intervals. Please review the results of this test in association with the posted reference intervals. Blood 03/28/2022 11:3 6 AM EST 03/29/2022 6:56 AM EST Narrative Resulting Agency Comment Spec In Lab Rita Leavitt MD CHEMISTRY ORDERA BLES [facility] [place] [address] documented in this encounter Visit Diagnoses Diagnosis Thrombocytopenia Thrombocytopenia, unspecified documented in this encounter Care Teams Hotel Director Relationship Specialty Start Date End Date Concetta Gottlieb MD [address] [address] PCP - General General Internal Medicine 02/01/22 documented as of this encounter
[2023-10-22 15:23] LABS: HCT 46.4 % (40.0-50.0); HGB 15.8 g/dL (13.5-17.5); MCHC 34.1 % (32.0-36.0); MCV 88 fL (80-95); MPV 12.7 fL (8.0-11.0); Platelet Count 103 10^3/uL (130-400); RBC 5.27 10^6/uL (4.36-5.78); RDW 12.7 % (11.8-14.1); RDW-SD 41.1 fL; WBC 5.32 10^3/uL (4.4-10.8)
[2023-10-22 15:59] LABS: ALT 26 U/L (16-63); AST 22 U/L (15-37); Albumin 4.6 g/dL (3.4-5.0); Alkaline Phosphatase 57 U/L (46-116); Anion Gap 6.9 mmol/L (3-11); BUN 15 mg/dL (7-18); Bilirubin, Total 0.61 mg/dL (0.2-1.0); CO2 28.1 mmol/L (21.0-32.0); CREATININE 0.9 mg/dL (0.70-1.30); Calcium 9.3 mg/dL (8.5-10.1); Chloride 107 mmol/L (98-107); Glucose 91 mg/dL (74-106); Potassium 4.3 mmol/L (3.5-5.1); Sodium 142 mmol/L (136-145)
== END 2023-10-22 11:53 | disposition home or self-care (01) ==
LOC: NCHCN 11:52
PROVIDERS: PCP Internal Medicine; Visit Provider Internal Medicine
DX: D69.6 Thrombocytopenia, unspecified (principal)
CPT/HCPCS: 80053; 85027

== ENCOUNTER 2024-06-04 08:26 | Day surgery (SDC) | payer MEDICAID, SELFPAY ==
[2024-06-04 08:36] VITALS: BP 133/94; PULSE 62; RESP 16; TEMP 36.4; O2SAT 99
[2024-06-04] MEDS: Lactated Ringers 1,000 ML 80 ML IV (09:07)
--- NOTE | 2024-06-04 09:43 | W.ANESPRE ---
General Info Date of Service Date Performed: 06/04/24 Height: 6 ft 4 in Weight: 125.5 kg Body Mass Index (BMI): 33.7 Surgical Procedure: Operation Date: 06/04/24 09:50 Proposed Procedure Side Surgeon mendel Crews MD Meds Allergies and Home Medications Allergies Allergy/AdvReac Type Severity Reaction Status Date / Time No Known Allergies Allergy Verified 06/04/24 08:53 Home Medication ?Medication ?Instructions ?Recorded fluticasone propionate 50 1 spray intranasal BID 04/29/24 mcg/actuation nasal spray,suspension bisacodyl 5 mg tablet,delayed 5 mg PO ONCE #4 tabs 05/20/24 release (Dulcolax (bisacodyl)) polyethylene glycol 3350 17 17 g PO ONCE #238 grams 05/20/24 gram/dose oral powder Current Visit Medications: Current Medications Generic Name Dose Route Start Last Admin Trade Name Freq PRN Reason Stop Dose Admin Ringer's Solution 1,000 mls @ 80 mls/hr 06/04/24 06:00 06/04/24 09:07 IV 06/04/24 23:59 80 mls/hr INFUSION NIKKI Administration IV Miscellaneous Supplies 1 each 06/04/24 06:00 Iv Access IV 06/04/24 23:59 DIRECTED NIKKI Sodium Chloride 0 ml 06/04/24 06:00 Normal Saline Flush 10 Ml Syr IV 06/04/24 23:59 PRN PRN Sodium Chloride 0 ml 06/04/24 06:00 Normal Saline 10 Ml Vial IJ 06/04/24 23:59 DIRECTED PRN Sterile Water 0 ml 06/04/24 06:00 Water,Injection,Sterile 10 Ml Vial IJ 06/04/24 23:59 DIRECTED PRN [facility] Medical History Medical History Fatigue Steatosis of liver Posterior rhinorrhea Thrombocytopenic disorder Tobacco Smoking/Tobacco Use Status: Never Alcohol Alcohol Intake: current Alcohol intake frequency: a few times a week Substance Use Substance use: Rarely Substance use type: marijuana Details: rarely edible THC, none in last 2 weeks per pt. Vital Signs and Lab Results Vital Signs Most Recent Vital Signs in EMR: Most Recent Vital Signs Temp Pulse Resp BP Pulse Ox 36.4 C L 62 16 133/94 H 99 06/04/24 08:36 06/04/24 08:36 06/04/24 08:36 06/04/24 08:36 06/04/24 08:36 Lab Results Blood Type / Crossmatch: No Data to Display Complete Blood Count: No Data to Display Complete Metabolic Panel: No Data to Display Liver Function Panel: No Data to Display Coagulation Panel: No Data to Display Cardiac Panel: No Data to Display Arterial Blood Gas: No Data to Display Venous Blood Gas: No Data to Display Pancreas Panel: No Data to Display Thyroid Panel: No Data to Display Infectious Disease: No Data to Display Blood Cultures: No Data to Display Toxicology Panel: No Data to Display Anesthesia Assessment and Plan Anesthesia History Personal History: Unknown Anesthesia History Family History: No Family History of Anesthesia Complications Exercise Tolerance Exercise Tolerance: Metabolic Equivalents>4 Pertinent Negatives Pertinent Negatives: No Symptoms of GERD Cardiac & Pulmonary Exam Cardiac Exam: Normal S1/S2 Heart Sounds Pulmonary Exam: Clear Bilateral Breath Sounds Implantable Cardiac Device Does patient have a Pacemaker or an ICD?: No Airway Exam Known Difficult Airway: No Mallampati Class: 1 Mouth Opening: Normal (> 3cm) Thyromental Distance: Greater than 3 cm Facial Hair: Full Chung Neck Range of Motion: Full ROM Neck Circumference: Normal Teeth Condition: Normal Dentition ASA Classification ASA Score: ASA 2 Emergency Case?: No NPO Status NPO Status: NPO Clears >2 hours, Solids >8 hours Anesthesia Plan Resuscitation Status: Full Code Anesthesia Technique: General Anesthesia Airway Planned: Natural Airway Monitors Used: Standard Monitors
--- NOTE | 2024-06-04 09:44 | W.COLOREPORT ---
Date of service: 06/04/24 Time of Service: 09:44 Colonoscopy Report Procedure Description: PROCEDURES PERFORMED: 1. Colonoscopy PREOPERATIVE DIAGNOSIS: Screening colonoscopy POSTOPERATIVE DIAGNOSIS: Grade 1 internal hemorrhoids SURGEON: Salome Crews MD INDICATION FOR PROCEDURE: the patient is a 49-year-old man who has never had a colonoscopy before. He reports that his mother had multiple adenomatous polyps. He has no symptoms. FINDINGS: No polyps. No obvious diverticular disease. Grade 1 internal hemorrhoids. SURVEILLANCE interval/FOLLOW-UP: With the family history of multiple adenomatous polyps in his mother, I recommend repeating a colonoscopy every 5 years under current guidelines. SPECIMENS: None EBL: Minimal COMPLICATIONS: None QUALITY of prep: Excellent Procedure in detail: The patient gave written consent and was in agreement with the indications, the potential risks as well as the benefits of the procedure. They were taken to the endoscopy suite and laid in the left lateral decubitus position. A timeout was performed and anesthesia was administered which was tolerated well. I started the procedure. Digital rectal and visual examination was performed and grossly within normal limits. A well-lubricated flexible colonoscope was then introduced and passed without any notable difficulty all the way to the cecum identified by the ileocecal valve and the appendiceal orifice. The scope was then slowly withdrawn with the above-noted findings. The patient tolerated the procedure well and was taken to the PACU in hemodynamically stable condition.
--- NOTE | 2024-06-04 09:44 | W.PM.DSUDISC ---
Date of service: 06/04/24 Discharge Plan Disposition Patient Disposition: Home Condition: Good Discharge Details Attending Provider: Rudolph Crews Primary Care Provider: Concetta Gottlieb Home Meds and New Rx's Prescriptions: No Action bisacodyl [Dulcolax (bisacodyl)] 5 mg tablet,delayed release (DR/EC) 5 mg PO ONCE Qty: 4 0RF Rx Instructions: Take per colonoscopy instructions provided by ordering providers office polyethylene glycol 3350 17 gram/dose powder 17 g PO ONCE Qty: 238 0RF Rx Instructions: Take per colonoscopy instructions provided by ordering providers office fluticasone propionate 50 mcg/actuation spray,suspension 1 spray intranasal BID Rx Instructions: administer into each nostril Discharge Instructions Additional Instructions: FINDINGS: No polyps. Some mild hemorrhoid disease is seen which is extremely common and benign and nothing needs to be done about it. Because of your family history (her mom having multiple adenomatous polyps) current guidelines recommend that you have colonoscopies every 5 years. Activity:: Activity as Tolerated Diet:: As Tolerated
[2024-06-04 09:45] VITALS: BMI 33.7
[2024-06-04 10:34] VITALS: BP 100/65; PULSE 54; RESP 16; TEMP 36.7; O2SAT 96
[2024-06-04 11:00] VITALS: BP 117/85; PULSE 55; RESP 16; TEMP 36.5; O2SAT 98
--- NOTE | 2024-06-04 11:03 | W.ANESPOSTOP ---
Postoperative Evaluation Date, Time and Location Date Performed: 06/04/24 Time Performed: 11:03 Patient Location: Day Surgery Unit Vital Signs Most Recent Imported Vital Signs: Most Recent Vital Signs Temp Pulse Resp BP Pulse Ox 36.4 C L 62 16 133/94 H 99 06/04/24 08:36 06/04/24 08:36 06/04/24 08:36 06/04/24 08:36 06/04/24 08:36 Pain Score Most Recent Pain Score: Most Recent Pain Score Pain Level 0 06/04/24 08:36 Assessment Mental Status: Awake (Alert & Oriented to Patient Baseline) Airway and Respiratory Function: Patent airway with normal (patient baseline) respiratory exam Cardiovascular Function: Hemodynamically Stable Hydration Status: Adequately Hydrated Nausea & Vomiting: No Nausea or Vomiting Pain: Pt. Denies Any Pain Peripheral Nerve Block: Patient did not receive a nerve block
== END 2024-06-04 11:50 | disposition home or self-care (01) ==
PROVIDERS: PCP Internal Medicine; Visit Provider Student in an Organized Health Care Education/Training Program
PROC: 0DJD8ZZ Inspection of Lower Intestinal Tract, Via Natural or Artificial Opening Endoscopic (ICD-10-PCS; CPT 45378; principal; 2024-06-04 09:45)
DX: Z12.11 Encounter for screening for malignant neoplasm of colon (principal); K64.0 First degree hemorrhoids
CPT/HCPCS: 45378; J2704

== ENCOUNTER 2024-11-29 10:23 | Outpatient (REF) | payer BC, SELFPAY ==
[2024-11-29 14:43] LABS: HCT 44.0 % (40.0-50.0); HGB 15.1 g/dL (13.5-17.5); MCH 30.3 pg (27.0-33.0); MCHC 34.3 % (32.0-36.0); MCV 88 fL (80-95); RBC 4.98 10^6/uL (4.36-5.78); RDW 12.6 % (11.8-14.1); RDW-SD 40.8 fL; WBC 4.24 10^3/uL (4.4-10.8)
[2024-11-29 14:55] LABS: ALT 32 U/L (16-63); AST 23 U/L (15-37); Albumin 4.3 g/dL (3.4-5.0); Alkaline Phosphatase 58 U/L (46-116); Anion Gap 7.2 mmol/L (3-11); BUN 17 mg/dL (7-18); Bilirubin, Total 0.5 mg/dL (0.2-1.0); CO2 27.8 mmol/L (21.0-32.0); Calcium 9.0 mg/dL (8.5-10.1); Chloride 106 mmol/L (98-107); Glucose 90 mg/dL (74-106); Potassium 4.8 mmol/L (3.5-5.1); Sodium 141 mmol/L (136-145); Total Protein 7.1 g/dL (6.4-8.2)
== END 2024-11-29 10:24 | disposition home or self-care (01) ==
LOC: NCHCN 10:23
PROVIDERS: PCP Internal Medicine; Visit Provider Internal Medicine
DX: K76.0 Fatty (change of) liver, not elsewhere classified (principal); Z00.00 Encounter for general adult medical examination without abnormal findings
CPT/HCPCS: 80053; 85027